=== PATIENT | female | born 1980 | race Caucasian/White ===

== ENCOUNTER 2019-01-29 17:47 | Outpatient (REF) | payer BC, SELFPAY ==
--- NOTE | 2019-01-29 16:30 | PAPFT_PTH ---
PATIENT: Kaity De Souza LOC: [facility] U#:[id number] AGE/SX: 38/F ROOM: RE01/29/[address]: Johana Harp APRN : 1980 BED: DIS: 01/29/2019 SPEC #: [id number] RECD: 01/29/19 17:51 STATUS: CARMITA CASTAÑEDA #: [id number] KATEY: 01/29/19 16:[address]: Johana Harp DEPT: [facility] Cytology RECD BY: Hilda Nunn Tissues: 1 - CX/ENDOCX FOR PAP SMEARS Procedures: PAP THIN PREP/UVM Screening HPV DNA PROBE Comments: [id number]
== END 2019-01-29 18:07 ==
LOC: LBN 17:47
PROVIDERS: PCP Nurse Practitioner Adult Health; Visit Provider Nurse Practitioner Adult Health
DX: Z12.4 Encounter for screening for malignant neoplasm of cervix (principal); Z11.51 Encounter for screening for human papillomavirus (HPV)
CPT/HCPCS: 88142; 87624

== ENCOUNTER 2019-08-20 15:19 | Outpatient (REF) | payer BC, SELFPAY | END 2019-08-20 15:39 | LOC: LBN 15:19 | PROVIDERS: PCP Nurse Practitioner Adult Health; Visit Provider Nurse Practitioner Adult Health | DX: R82.81 Pyuria (principal) | CPT/HCPCS: 87077; 87086; 87186 ==

== ENCOUNTER 2020-03-27 10:35 | Emergency (ER) | payer BC, SELFPAY ==
--- NOTE | 2020-03-27 10:30 | DI.RAD_ITS ---
EXAM: XR TIB/FIB LT and XR ankle LT complete CLINICAL HISTORY: Fall, R/O fracture. TECHNIQUE: 2D digital imaging was performed COMPARISON: CR,XR XR ANKLE LT COMPLETE from 03/27/2020 FINDINGS: BONES: There is a comminuted fracture involving the distal left fibula. The fracture involves the di stal metadiaphyseal junction and extends inferiorly to the level of the talar dome. There is some im paction the fracture noted. No tibial fracture is identified. The ankle is otherwise intact. No letitia ny destructive lesion is seen. The visualized portion of the knee is unremarkable. SOFT TISSUE: There is soft tissue swelling of the ankle laterally. IMPRESSION: Mildly displaced and impacted spiral fracture of the distal left fibula extending from the distal met adiaphysis inferiorly to the level of the talar dome. DATA REPOSITORY: RADIATION DOSE DELIVERED:
[2020-03-27 10:38] VITALS: BP 128/54; PULSE 88; RESP 16; TEMP 36.7; O2SAT 99
--- NOTE | 2020-03-27 10:43 | ED.GENADUL_ITS ---
Discharge Plan Disposition Patient Disposition: HOME Condition: Stable Discharge Details Chief Complaint: Orthopedic Clinical Impression: Closed fracture of distal end of left fibula Primary Care Provider: Johana Harp ED Provider: Ly Baltazar Home Meds and New Rx's Prescriptions: New ibuprofen 800 mg tablet 800 mg PO Q6H PRN (Reason: pain) Qty: 20 RF: 0 Discontinued ibuprofen 800 mg tablet 800 mg PO BID PRNQty: 60 RF: 1 Discharge Instructions Instructions: Ankle Fracture (ED), Leg Fracture (ED) Additional Instructions: Wear Ortho walking boot as directed. Use crutches. Non weight bearing is much as tolerated may progress to toe-touch weight bearing if tolerated. Rest, ice, compression, elevation while sitting or laying down. Keep your ankle raised above your heart as much as possible. Please take Tylenol or Ibuprofen with food every 4-6 hours as needed for pain and swelling. Follow-up with orthopedic clinic in 1 week. You are placed on a care management list they will call you for an appointment or you can call and make an appointment yourself. Referrals: Johnaa Harp NP [Primary Care Provider] - Antony Sharma MD [ [facility] STAFF PHYSICIAN] - Discharge Data Discharge Date/Time-TO BE ENTERED AT DEPARTURE: 03/27/20 11:54 Medical Decision Making 39-year-old female presents to the ED with chief complaint of left ankle pain status post mechanical fall yesterday while hiking. Patient describes injury as her foot got caught underneath some rocks and she fell forward and heard a pop. She denies any other injuries, no LOC, is alert and oriented x4 upon arrival, no neck, no back pain. Upon initial presentation she does have swelling noted to her left ankle, mild tenderness to palpation below her left knee. She did take 800 mg ibuprofen at 0930 prior to arrival. She has a history of scoliosis with spinal fusion, tubal ligation, asthma. 1049: Imaging ordered to rule out fracture of ankle and proximal tib-fib. 1107: X-ray of ankle shows a distal fibula fracture, vRad read noted below TECHNIQUE: Imaging protocol: XR Left tibia and fibula. Views: 2 views. COMPARISON: No relevant prior studies available. FINDINGS: Bones/joints: Complex spiral fracture of the distal left fibula/lateral malleolus with the distal extent at the level of the talar dome extending proximally to the metadiaphysis (Lama B). This fracture is minimally displaced and slightly impacted. No evident displaced distal tibial fracture. No evidence of proximal tibial or fibula fracture. The partially visualized left knee is unremarkable. Soft tissues: Lateral ankle soft tissue swelling. IMPRESSION: Complex spiral fracture of the distal left fibula/lateral malleolus with the distal extent at the level of the talar dome extending proximally to the metadiaphysis (Lama B). This fracture is minimally displaced and slightly impacted. No evident displaced distal tibial fracture. No evidence of proximal tibial or fibula fracture. Thank you for allowing us to participate in the care of your patient. Dictated and Authenticated by: William Churchill MD 03/27/2020 11:27 AM Eastern Time ([place] & [place]) 1132: transmission specialist, Antony Sharma on-call paged. He recommends Ortho boot and crutches and follow-up in 1 week. Patient tolerated walking boot without difficulty and crutches, discussed home care and strict return instructions with patient, verbalized understanding. Patient placed on care management list for Ortho follow-up. Ibuprofen 800 mg prescribed every 6 hours as needed for pain and swelling. This text was generated using [employer] dictation system, please disregard any oddities of phrase or misspellings. HPI General Mode of arrival: ambulatory (Crutches) . Date/Time Provider Initiated Documentation: 03/27/20 10:37 . Limitations to Documentation: no limitations . Information obtained by: patient . HPI Narrative: 39-year-old female presents to the ED with chief complaint of left ankle pain status post mechanical fall yesterday while hiking. Patient describes injury as her foot got caught underneath some rocks and she fell forward and heard a pop. She denies any other injuries, no LOC, is alert and oriented x4 upon arrival, no neck, no back pain. Upon initial presentation she does have swelling noted to her left ankle, mild tenderness to palpation below her left knee. She did take 800 mg ibuprofen at 930 prior to arrival. She has a history of scoliosis with spinal fusion, tubal ligation, asthma. Related Data Home Medications Medication Instructions Recorded Confirmed ibuprofen 800 mg PO Q6H PRN #20 tab 03/27/20 Previous Rx's Medication Instructions Recorded ibuprofen 800 mg PO Q6H PRN #20 tab 03/27/20 Allergies Allergy/AdvReac Type Severity Reaction Status Date / Time azithromycin AdvReac Intermediate Abd Verified 03/27/20 10:43 distress, vomiting, nausea General Stated Complaint: Orthopedic HELEN: 4 Review of Systems All systems reviewed & are unremarkable except as noted in HPI and below Musculoskeletal Musculoskeletal: Reports arthralgias, Reports joint swelling and Reports limited range of motion (Left ankle) PFSH Medical History Right knee meniscal tear (Resolved) with repair by Dr Villanueva ([facility]) 2006 Scoliosis (Chronic) Surgical History H/O breast biopsy (Resolved ~09/2012) H/O spinal fusion (Chronic) 1992 History of foot surgery (Inactive) Wart removed surgically (left 5th digit); stitches removed here @ ED. Status post excisional biopsy (Acute) [facility] Dr. Sourav Doherty, DPM, 07/07/19 Wart removal L 5th toe Tubal Ligation, Laparoscopic (Resolved) ~2006 Family History Mother , lymphoma, 2015 Lymphoma B-cell Father , CVA Neoplasm bladder cancer Stroke major Substance abuse EtOH Brother Hernia Colitis Grandfather Essential hypertension Grandmother Essential hypertension Myocardial infarction Stroke Social History Smoking/Tobacco Use Status: Never Alcohol Intake: current Alcohol Intake frequency: a few times a week Drug use: Never Substance use type: does not use Household members: spouse Housing: house Number of Children: 2 Communication Needs: None Education Level: college Details: BS degree Current gender identity: female What is your relationship status?: Panel score (0-1 are the most socially isolated patients): 1 What type of physical activity do you participate in: regular exercise Duration: 30-45 minutes/day Frequency: 3-4 times per week Seatbelt use: always Drive intox or ride w/intox laundry route driver: No Working smoke detector in home: Yes Fire extinguisher in home: Yes Carbon monox detector in home: Yes Do you feel safe at home: Yes Do you feel safe in your relationship?: Yes Victim of physical abuse: No Victim of emotional abuse: No Victim of sexual abuse: No Exam Narrative Exam Narrative: Constitutional: Alert and oriented x3. Appears stated age. Normal body habitus. Head: Normocephalic, no trauma. Eyes: Pupils PERRLA, Red reflex noted, EOM's intact. Eyelids symmetrical without lesions, discharge, or swelling. ENT: Bilateral TM's WNL, External ear normal to inspection, no mastoid TTP, swelling, or erythema, Nasal turbinates WNL, no nasal discharge. Normal dentition, Posterior pharynx WNL, no exudate. Chest: RRR, Normal S1, S2, distal pulses intact. Resp: Lungs clear to auscultation bilaterally, no wheezes, rales, or rhonchi. Musculoskeletal: Patient presents with crutches, does have moderate swelling n oted surrounding lateral and medial malleolus, dorsal pedal pulses intact. Does have mild tenderness just medial of the tibial tuberosity, full range of motion noted to the knee, no obvious deformity. Skin: No suspicious rashes or lesions. Capillary refill less than 2 sec. Neurologic: Cranial nerves II-XII intact. Alert and oriented x 3. DTR's intact. Hematologic/Lymphatic: Mild ecchymosis/contusion noted to the lateral malleolus. No lymphadenopathy. Course Vital Signs Vital signs: Vital Signs Temperature 36.7 C 03/27/20 10:38 Pulse 88 03/27/20 10:38 Respiratory Rate 16 03/27/20 10:38 Blood Pressure 128/54 L 03/27/20 10:38 Pulse Oximetry 99 03/27/20 10:38 Temperature 36.7 C 03/27/20 10:38 Temperature Source Skin 03/27/20 10:38 Pulse 88 03/27/20 10:38 Respiratory Rate 16 03/27/20 10:38 Respiratory Effort Non-Labored 03/27/20 10:38 Blood Pressure 128/54 L 03/27/20 10:38 Blood Pressure Position Sitting 03/27/20 10:38 Pulse Oximetry 99 03/27/20 10:38 Oxygen Delivery Method Room Air 03/27/20 10:38 Oxygen Flow Rate 0 03/27/20 10:38 Pain Level 10 03/27/20 10:38
--- NOTE | 2020-03-27 11:25 | DI.VRAD_ITS ---
PROCEDURE INFORMATION: Exam: XR Left Ankle Exam date and time: 03/27/2020 10:56 AM Age: 39 years old Clinical indication: Other: Fall, R/O fracture TECHNIQUE: Imaging protocol: XR Left ankle. Views: 3 or more views. COMPARISON: No relevant prior studies available. FINDINGS: Bones/joints: Complex spiral fracture of the distal left fibula/lateral malleolus with the distal extent at the level of the talar dome extending proximally to the metadiaphysis (Lama B). This fracture is minimally displaced and slightly impacted. No evident displaced distal tibial fracture. Soft tissues: Lateral soft tissue swelling. IMPRESSION: Complex spiral fracture of the distal left fibula/lateral malleolus with the distal extent at the level of the talar dome extending proximally to the metadiaphysis (Lama B). This fracture is minimally displaced and slightly impacted. No evident displaced distal tibial fracture. Dictated and Authenticated by: William Churchill MD. Ordering:CRIS Modi MD
--- NOTE | 2020-03-27 11:27 | DI.VRAD_ITS ---
PROCEDURE INFORMATION: Exam: XR Left Tibia and Fibula Exam date and time: 03/27/2020 10:54 AM Age: 39 years old Clinical indication: Other: Fall, R/O fracture TECHNIQUE: Imaging protocol: XR Left tibia and fibula. Views: 2 views. COMPARISON: No relevant prior studies available. FINDINGS: Bones/joints: Complex spiral fracture of the distal left fibula/lateral malleolus with the distal extent at the level of the talar dome extending proximally to the metadiaphysis (Lama B). This fracture is minimally displaced and slightly impacted. No evident displaced distal tibial fracture. No evidence of proximal tibial or fibula fracture. The partially visualized left knee is unremarkable. Soft tissues: Lateral ankle soft tissue swelling. IMPRESSION: Complex spiral fracture of the distal left fibula/lateral malleolus with the distal extent at the level of the talar dome extending proximally to the metadiaphysis (Lama B). This fracture is minimally displaced and slightly impacted. No evident displaced distal tibial fracture. No evidence of proximal tibial or fibula fracture. Dictated and Authenticated by: William Churchill MD. Ordering:CRIS Modi MD
== END 2020-03-27 11:54 | disposition home or self-care (01) ==
PROVIDERS: Emergency Provider Registered Nurse Emergency; PCP Nurse Practitioner Adult Health
DX: S82.442A Displaced spiral fracture of shaft of left fibula, initial encounter for closed fracture (principal); X50.9XXA Other and unspecified overexertion or strenuous movements or postures, initial encounter; Y93.01 Activity, walking, marching and hiking
CPT/HCPCS: 27786; 73590; 73610; L4361

== ENCOUNTER 2020-04-05 12:06 | Outpatient (REF) | payer BC, SELFPAY | END 2020-04-05 12:26 | LOC: LBN 12:06 | PROVIDERS: PCP Nurse Practitioner Adult Health; Visit Provider Nurse Practitioner | DX: R30.0 Dysuria (principal) | CPT/HCPCS: 87086 ==

== ENCOUNTER 2021-03-10 03:54 | Outpatient (CLI) | payer BC, SELFPAY ==
[2021-03-10 11:58] LABS: Anion Gap 7.6 mmol/L (3-11); BUN 13 mg/dL (7-18); CO2 27.4 mmol/L (21.0-32.0); CREATININE 0.7 mg/dL (0.55-1.02); Calcium 8.7 mg/dL (8.5-10.1); Chloride 107 mmol/L (98-107); Glucose 96 mg/dL (74-106); Potassium 4.2 mmol/L (3.5-5.1); Sodium 142 mmol/L (136-145)
== END 2021-03-10 03:55 | disposition home or self-care (01) ==
LOC: LBO 03:54
PROVIDERS: PCP Nurse Practitioner Adult Health; Visit Provider Nurse Practitioner Adult Health
DX: R42 Dizziness and giddiness (principal)
CPT/HCPCS: 36415; 80048

== ENCOUNTER → 2022-06-15 00:14 | Outpatient (CLI) | payer BC, SELFPAY ==
--- OUTSIDE RECORDS SUMMARY | 2022-06-15 00:15 | XMS_ITS | Encounter Summary ---
:1980 Author Organization [facility] [place] [address] Care Team Providers Name Role Phone Yaritza Stewart APRN Primary Care Provider [phone] Encounter Details Date Type Department Care Team Description 07/02/2019 External Results Medical Records Provider, Scanning [facility] [place] [address] Social History Tobacco Use Types Packs/Day Years Used Date Never Assessed Sex Assigned at Date Recorded Not on file documented as of this encounter Plan of Treatment Not on filedocumented as of this encounter Procedures Procedure Name Priority Date/Time Associated Diagnosis Comme nts SURGICAL PATHOLOGY Routine 07/02/2019 Results f or this SCAN procedure are i n the results section . documented in this encounter Results Scan Doc: Surgical Pathology (07/02/2019) Narrative This result has an attachment that is no t available. Historical Provider MD DEJESUS MGR SCAN EXT ORDR/RSLT documented in this encounter Visit Diagnoses Not on filedocumented in this encounter Care Teams Associate Engineer Relationship Specialty Start Date End Date Yaritza Stewart APRN PCP - General 08/22/[address] [place] [address] documented as of this encounter
--- OUTSIDE RECORDS SUMMARY | 2022-06-15 00:15 | XMS_ITS | Encounter Summary ---
:1980 Author Organization [facility] [place] [address] Care Team Providers Name Role Phone Yaritza Stewart JULIEN Primary Care Provider [phone] Encounter Details Date Type Department Care Team Description 07/01/2019 Hospital Encounter [place] [address] Social History Tobacco Use Types Packs/Day Years Used Date Never Assessed Sex Assigned at Date Recorded Not on file documented as of this encounter Plan of Treatment Not on filedocumented as of this encounter Procedures Procedure Name Priority Date/Time Associated Diagnosis Comme [facility] SURGICAL PATHOLOGY Routine 07/01/2019 12:00 PM Toya ramirez for this REPORT EDT procedure are i n the results section. documented in this encounter Results Surgical Pathology Report (07/01/2019 12:00 PM EDT) Component Value Ref Test Analysis Performed At [facility] Method Time [facility] Surgical [id number] ? Location: [facility] Pathology [place] Report The signing pathologist has (i) examined the relevant preparation(s) for the [facility] specimen(s) and (ii) rendered or confirmed the diagnosis(es) . HOSPITAL LABORATORY . ?Surgic al Pathology DIAGNOSIS Skin, left 5th toe, ??excision: - Myrmecia wart, present at the peripheral margins Electronically signed by: ??Alex Simpson MD Verified: ??07/07/2019 ?Dermatopathologist Performed at: ??-[facility] Dept. of Pathology, [place], [place] CLINICAL INFORMATION Specimen Submitted: A - SKin, left 5th toe, lesion tag-proximal Clinical History and Diagnosis: Verruca plantaris left foot Referring Identifier: ??[id number] SPECIMEN PROCESSING A - Labeled/Fixative: Skin lesion left fifth toe tag proxima l, formalin. Quantity/Size: ??Single, 0.9 x 0.8 x 0.5 cm. Tissue Description: Oriented ellipse of colon-phan skin with a suture one apex identified as proximal. The skin surfaces presented with a raised, granular ill- defined papule 0.6 cm in greatest dimension Inkin-3-6 o'clock is marked black. ??6-9-12 o'clock is marked blue. Sections/Processing: Serially sectioned and entirely submitted in 3 cassettes as follows: ?A1: ??Sutured, proximal apex ?A2: ??Body ?A3: ??Distal apex ??PPS/vb Specimen (Source) Anatomical Collection Method Collection Time Re ceived Time Location / / Volume Laterality 07/01/2019 12:00 PM EDT Resulting Agency Comment Spec In Lab / [facility] Sourav Doherty DPM PATHOLOGY/CYTOLOGY ORDERAB LES Performing Organization Address City/State/[place] [address] [facility] [address] documented in this encounter Visit Diagnoses Not on filedocumented in this encounter Care Teams Child Care Centre Director Relationship Specialty Start Date End Date Yaritza Stewart APRN PCP - General 08/22/[address] [place] [address] documented as of this encounter
--- OUTSIDE RECORDS SUMMARY | 2022-06-15 00:15 | XMS_ITS | Encounter Summary ---
:1980 Author Organization [employer] [facility] [employer] Address [address] [place] [address] Care Team Providers Name Role Phone Yaritza Stewart JULIEN Primary Care Provider [phone] Encounter Details Date Type Department Care Team Description 09/11/2011 Orders Only Radiology Lucero Bailey MD Abnormal mammogram, [facility] ([address]) [place] [address] DIAGNOSTIC [phone] RADIOLOGY [place], [place] [address] Social History Tobacco Use Types Packs/Day Years Used Date Never Assessed Sex Assigned at Date Recorded Not on file documented as of this encounter Plan of Treatment Not on filedocumented as of this encounter Results Mammo breast US unilateral bilateral (09/12/2011 1:36 PM EST) Anatomical Region Laterality Modality Breast N/A Mammography Specimen (Source) Anatomical Collection Method Collection Time Re ceived Time Location / / Volume Laterality 09/12/2011 1:36 PM EST Narrative 09/12/2011 4:21 PM EST LEFT BREAST ULTRASOUND ON 09/12/11: ?? DIAGNOSTIC IMAGING SUMMARY: ?? LEFT BREAST LESION 1: SUSPICIOUS (BIRADS Category 4A-low concern for malignancy). ?? Finding: Mass. ?? Size: 15 x 7mm. ?? Location: 0400, 5cm from the nipple. ?? Recommendation: This is felt to likely r epresent a fibroadenoma; however, as it is newly palpable, ultrasound guided bio psy was recommended and has been scheduled for 09/17/11 at 10:50am. ? NARRATIVE: ?? CLINICAL INDICATION: Follow-up outside i nterpretation. The patient had a palpable lump in the Left breast. Per e patient, the lump was palpated by the clinician and it was the clinician's fir st time examining the patient. ?? CORRELATIVE STUDIES: Mammogram 08/28/11 and ultrasound 08/28/11. ?? FINDINGS: In the Left breast in the 0400 position, 5cm from the nipple there is a well circumscribed, gently lobulated 1 5 x 7mm predominantly hypoechoic mass with a small amount of internal vascular ity. ? Film and interpretation reviewed by the attending Procedure Note Danica Gonzalez MD - 09/12/2011Format ting of this note might be different from the original. LEFT BREAST ULTRASOUND ON 09/12/11: DIAGNOSTIC IMAGING SUMMARY: LEFT BREAST LESION 1: SUSPICIOUS (BIRADS Category 4A-low concern for malignancy). Finding: Mass. Size: 15 x 7mm. Location: 0400, 5cm from the nipple. Recommendation: This is felt to likely r epresent a fibroadenoma; however, as it is newly palpable, ultrasound guided bio psy was recommended and has been scheduled for 09/17/11 at 10:50am. NARRATIVE: CLINICAL INDICATION: Follow-up outside i nterpretation. The patient had a palpable lump in the Left breast. Per e patient, the lump was palpated by the clinician and it was the clinician's fir st time examining the patient. CORRELATIVE STUDIES: Mammogram 08/28/11 and ultrasound 08/28/11. FINDINGS: In the Left breast in the 0400 position, 5cm from the nipple there is a well circumscribed, gently lobulated 1 5 x 7mm predominantly hypoechoic mass with a small amount of internal vascular ity. Film and interpretation reviewed by the attending Lucero Bailey MD IMG MAMMO ORDERABLES documented in this encounter Visit Diagnoses Diagnosis Abnormal mammogram, unspecified - Primar y Abnormal mammogram, unspecified documented in this encounter Care Teams Assembly Press Operator Relationship Specialty Start Date End Date Yaritza Stewart APRN PCP - General 08/22/[address] [place] [address] documented as of this encounter
--- OUTSIDE RECORDS SUMMARY | 2022-06-15 00:15 | XMS_ITS | Encounter Summary ---
:1980 Author Organization [facility] [place] [address] Care Team Providers Name Role Phone Yaritza Stewart INSURANCE POLICY CLERK Primary Care Provider [phone] Encounter Details Date Type Department Care Team Description 09/17/2011 Hospital Encounter Mammography [place] [facility] [place] BECKETT Lump or mass in breast; [facility] Jonathan Guerrero MD [address], [place] [id number] Abnormal findings on diagnostic [place] [id number] Social History Tobacco Use Types Packs/Day Years Used Date Never Assessed Sex Assigned at Date Recorded Not on file documented as of this encounter H&P Notes Danica Greene MD - 09/17/2011 10:55 AM EST Procedure date: done today Procedure type: right Breast ultrasound guided biopsy Special Instructions: none Allergies: Review of patient's allergies indicates not on file. Medications: No current outpatient prescriptions on file. Anticoagulation status: none Imaging reviewed and procedural plan approved by Dr. DANICA GREENE MD documented in this encounter Miscellaneous Notes Miscellaneous - Provider, Scanning - 09/28/2011 9:10 AM EST Miscellaneous - Provider, Scanning - 09/28/2011 8:56 AM EST documented in this encounter Plan of Treatment Not on filedocumented as of this encounter Procedures Procedure Name Priority Date/Time Associated Diagnosis Comme nts MAMMO US BIOPSY Routine 09/17/2011 11:55 AM Lump or mass in Re sults for this BILATERAL EST breast procedure are in Abnormal findings on the res ults diagnostic imaging section. of breast documented in this encounter Results Mammo- US biopsy (09/17/2011 11:55 AM EST) Anatomical Region Laterality Modality Breast N/A Mammography Specimen (Source) Anatomical Collection Method Collection Time Re ceived Time Location / / Volume Laterality 09/17/2011 11:55 AM EST Impressions 09/19/2011 1:41 PM EST Impression: Concordant Recommendation: Commence routine screeni ng mammography at an age and time interval appropriate for her risk factor s and future recommendations. Discussed with the patient on 09/19/11 No post-clip films obtained Both Dr. Cruz and I performed the proc edure. I attest to having personally viewed the images/test and approve the a alda interpretation. Narrative 09/19/2011 1:41 PM EST ULTRASOUND GUIDED BIOPSY OF THE LEFT SAI AST ON 09/17/11: Informed consent was obtained, sterile t echnique and 1% lidocaine used for local anesthesia and ultrasound guidance used throughout the procedure. Clinical indication: 19mm mass, 0400, 5c m from nipple in the Left breast A 14 gauge Achieve biopsy device was use d 4 core biopsy specimens obtained. Satisfactory sampling was obtained. A 17 gauge Ultracore [place] marker clip w as placed. Cranio-caudal and lateral digital mammography performed to determi ne biopsy marker placement, which was shown to be at the biopsy site. There were no procedural complications. Imaging diagnosis: Fibroadenoma Pathologic diagnosis: Fibroadenoma Procedure Note Danica Greene MD - 09/19/2011Format ting of this note might be different from the original. ULTRASOUND GUIDED BIOPSY OF THE LEFT SAI AST ON 09/17/11: Informed consent was obtained, sterile t echnique and 1% lidocaine used for local anesthesia and ultrasound guidance used throughout the procedure. Clinical indication: 19mm mass, 0400, 5c m from nipple in the Left breast A 14 gauge Achieve biopsy device was use d 4 core biopsy specimens obtained. Satisfactory sampling was obtained. A 17 gauge Ultracore [place] marker clip w as placed. Cranio-caudal and lateral digital mammography performed to determi ne biopsy marker placement, which was shown to be at the biopsy site. There were no procedural complications. Imaging diagnosis: Fibroadenoma Pathologic diagnosis: Fibroadenoma IMPRESSION Impression: Concordant Recommendation: Commence routine screeni ng mammography at an age and time interval appropriate for her risk factor s and future recommendations. Discussed with the patient on 09/19/11 No post-clip films obtained Both Dr. Cruz and I performed the proc edure. I attest to having personally viewed the images/test and approve the a alda interpretation. Danica Greene MD IMG MAMMO ORDERABLES documented in this encounter Visit Diagnoses Diagnosis Lump or mass in breast Abnormal findings on diagnostic imaging of breast Other (abnormal) findings on radiologica l examination of breast documented in this encounter Care Teams Grain Grader Relationship Specialty Start Date End Date Yaritza Stewart APRN PCP - General 08/22/[address] [address] documented as of this encounter
--- OUTSIDE RECORDS SUMMARY | 2022-06-15 00:15 | XMS_ITS | Encounter Summary ---
:1980 Author Organization [facility] Address [facility] [address] [place] [address] Care Team Providers Name Role Phone Yaritza Stewart REVENUE INSPECTOR Primary Care Provider [phone] Encounter Details Date Type Department Care Team Description 09/07/2011 Hospital Encounter XRay at [facility], DR BECKETT [address] [place] [address] [place] [phone] Social History Tobacco Use Types Packs/Day Years Used Date Never Assessed Sex Assigned at Date Recorded Not on file documented as of this encounter Plan of Treatment Not on filedocumented as of this encounter Procedures Procedure Name Priority Date/Time Associated Diagnosis Comme nts REQUEST FOR 2ND Routine 09/07/2011 1:46 PM Result s for this READ MAMMO EST procedure are i n the results section. documented in this encounter Results REQUEST FOR 2ND READ MAMMO (09/07/2011 1:46 PM EST) Anatomical Region Laterality Modality Other Specimen (Source) Anatomical Collection Method Collection Time Re ceived Time Location / / Volume Laterality 09/07/2011 1:46 PM EST Narrative 09/10/2011 11:36 AM EST INTERPRETATION OF OUTSIDE BILATERAL DIRE CT DIGITAL MAMMOGRAM 08/28/11 CONSISTING OF CC, MLO AND ML VIEWS OF LES TH BREASTS FROM [facility] (NO COMPARISONS) AND ACCOMPANYING REPORTS WITH LEFT BREAS T ULTRASOUND OF THE SAME DATE FOR COMPARISON: DIAGNOSTIC IMAGING SUMMARY: LEFT BREAST LESION 1: SUSPICIOUS (BIRADS Category 4). Finding: Palpable solid mass. Recommendation: If this mass is newly pa lpable, then tissue sampling is recommended. If the patient wishes to pu rsue tissue sampling at this institution, then a repeat ultrasound wo uld be needed prior to scheduling the biopsy. NARRATIVE: CLINICAL INDICATION: I have been asked t o consult on this patient by Dr. Jonathan Guerrero and Johana Harp APRN [facility] ause they believe a review of this study may change or alter the care of [facility]. The patient presented with a palpable lump in the Left breast. There is a skin marker presumably markin g a palpable abnormality in the lower, outer quadrant of the Left breast. FINDINGS: The mammogram shows an extreme ly dense fibroglandular pattern. No finding worrisome for malignancy is s een in either breast. Specifically, in the region of the indicated palpable mas s there is no mammographic abnormality. Per outside ultrasound report and the mitchell bmitted images there does appear to be a solid mass which presumably correspond s to the palpable abnormality. This may very well represent a fibradenoma but if this is newly palpable, ??recommend ultrasound guided core needle biopsy. If patient wishes to pursue biopsy at this institution and as ultrasound is op erator dependent, a repeat ultrasound would be needed at this institution prio r to scheduling the biopsy. Procedure Note Lucero Bailey MD - 09/10/2011 INTERPRETATION OF OUTSIDE BILATERAL DIRE CT DIGITAL MAMMOGRAM 08/28/11 CONSISTING OF CC, MLO AND ML VIEWS OF LES TH BREASTS FROM [facility] (NO COMPARISONS) AND ACCOMPANYING REPORTS WITH LEFT BREAS T ULTRASOUND OF THE SAME DATE FOR COMPARISON: DIAGNOSTIC IMAGING SUMMARY: LEFT BREAST LESION 1: SUSPICIOUS (BIRADS Category 4). Finding: Palpable solid mass. Recommendation: If this mass is newly pa lpable, then tissue sampling is recommended. If the patient wishes to pu rsue tissue sampling at this institution, then a repeat ultrasound wo uld be needed prior to scheduling the biopsy. NARRATIVE: CLINICAL INDICATION: I have been asked t o consult on this patient by Dr. Jonathan Guerrero and JULIEN Cotton they believe a review of this study may change or alter the care of [facility] patient. The patient presented with a palpable lump in the Left breast. There is a skin marker presumably markin g a palpable abnormality in the lower, outer quadrant of the Left breast. FINDINGS: The mammogram shows an extreme ly dense fibroglandular pattern. No finding worrisome for malignancy is s een in either breast. Specifically, in the region of the indicated palpable mas s there is no mammographic abnormality. Per outside ultrasound report and the mitchell bmitted images there does appear to be a solid mass which presumably correspond s to the palpable abnormality. This may very well represent a fibradenoma but if this is newly palpable, recommend ultrasound guided core needle biopsy. If patient wishes to pursue biopsy at this institution and as ultrasound is op erator dependent, a repeat ultrasound would be needed at this institution prio r to scheduling the biopsy. Johana Harp APRN IMG OUTSIDE INTERPRETATION O RDERABLES documented in this encounter Visit Diagnoses Not on filedocumented in this encounter Care Teams Personnel Worker Relationship Specialty Start Date End Date Yaritza Stewart APRN PCP - General 08/22/[address] [place] [address] documented as of this encounter
--- OUTSIDE RECORDS SUMMARY | 2022-06-15 00:15 | XMS_ITS | Encounter Summary ---
:1980 Author Organization [facility] Address [facility] [place] [address] Care Team Providers Name Role Phone Yaritza Stewart APRN Primary Care Provider Encounter Details Date Type Department Care Team Description 09/12/2011 Orders Only Radiology Danica Gonzalez, Lump or mass in breast; [facility] Abnormal findings on diagnostic imaging [place] [address] DIAGNOSTIC RADIOLOGY [phone] [place], [place] [address] (Wo rk) Social History Tobacco Use Types Packs/Day Years Used Date Never Assessed Sex Assigned at Date Recorded Not on file documented as of this encounter Plan of Treatment Not on filedocumented as of this encounter Results Mammo- US biopsy (09/17/2011 [...] personally viewed the images/test and approve the kath lizama interpretation. Narrative 09/19/2011 1:41 PM EST ULTRASOUND [...] sampling was obtained. A 17 gauge Ultracore [place] marker clip w as placed. Cranio-caudal and lateral digital mammography performed to determi ne biopsy marker placement, which was shown to be at the biopsy site. There were no procedural complications. Imaging diagnosis: Fibroadenoma Pathologic diagnosis: Fibroadenoma Procedure Note Danica Gonzalez MD - 09/19/2011Format ting of this note [...] sampling was obtained. A 17 gauge Ultracore [place] marker clip w as placed. Cranio-caudal and [...] and approve the a alda interpretation. Danica Gonzalez MD IMG MAMMO ORDERABLES documented in this encounter Visit Diagnoses Diagnosis Lump or mass in breast Abnormal findings on diagnostic imaging of breast Other (abnormal) findings on radiologica l examination of breast Lump or mass in breast Abnormal findings on diagnostic imaging of breast Other (abnormal) findings on radiologica l examination of breast documented in this encounter Care Teams Manager Battery Relationship Specialty Start Date End Date Yaritza Stewart APRN PCP - General 08/22/10 [address] [place] [address] documented as of this encounter
--- OUTSIDE RECORDS SUMMARY | 2022-06-15 00:15 | XMS_ITS | Encounter Summary ---
:1980 Author Organization [facility] [place] [address] Care Team Providers Name Role Phone Yaritza Stewart APRN Primary Care Provider [phone] Encounter Details Date Type Department Care Team Description 09/06/2011 External Results [facility] [place] [address] Social History Tobacco Use Types Packs/Day Years Used Date Never Assessed Sex Assigned at Date Recorded Not on file documented as of this encounter Plan of Treatment Not on filedocumented as of this encounter Procedures Procedure Name Priority Date/Time Associated Diagnosis Comme nts MAMMO GENERIC BILATERAL SCREENING Routine 08/28/2011 documented in this encounter Results *Mammo generic bilateral screening (08/28/2011) Anatomical Region Laterality Modality Breast Bilateral Mammography Narrative This result has an attachment that is no t available. Historical Provider MD PHIPPS MAMMO ORDERABLES documented in this encounter Visit Diagnoses Not on filedocumented in this encounter Care Teams Commissary Representative Relationship Specialty Start Date End Date Yaritza Stewart APRN PCP - General 08/22/10 [facility] [place] [place] [address] documented as of this encounter
--- OUTSIDE RECORDS SUMMARY | 2022-06-15 00:15 | XMS_ITS | Clinical Summary ---
:1980 Author Organization [facility] [place] [address] Care Team Providers Name Role Phone Yaritza Stewart APRN Primary Care Provider [phone] Social History Tobacco Use Types Packs/Day Years Used Date Never Assessed Sex Assigned at Date Recorded Not on file Plan of Treatment Health Maintenance Due Date Last Done Comments Covid-19 Vaccine (#1) 1983 HIV screen 1996 Hepatitis C Screening 1996 Tdap adult 1997 Tetanus vaccine 1997 HPV test 2008 PAP Smear 2008 Breast Cancer Share Decision Needed 2018 Influenza (Flu) vaccine (1 of - Influenza standard 05/31/2022 series) Insurance Payer Benefit Plan / Subscriber ID Effective Dates Phone Addre ss Type Group [employer] [place] [id number] 2018-Present [address] [employer] [place] [address] Care Teams Model Maker Relationship Specialty Start Date End Date Yaritza Stewart APRN PCP - General 08/22/[address] [place] [address]
--- OUTSIDE RECORDS SUMMARY | 2022-06-15 00:15 | XMS_ITS | Encounter Summary ---
:1980 Author Organization [place] [address] Care Team Providers Name Role Phone Yaritza Stewart JULIEN Primary Care Provider [phone] Encounter Details Date Type Department Care Team Description 09/12/2011 Hospital Encounter Mammography at [facility], DR BECKETT Abnormal mammogram, [facility] Jonathan Guerrero MD [address] [place], [place] [id number] [place] [address] Social History Tobacco Use Types Packs/Day Years Used Date Never Assessed Sex Assigned at Date Recorded Not on file documented as of this encounter Plan of Treatment Not on filedocumented as of this encounter Procedures Procedure Name Priority Date/Time Associated Diagnosis Comme nts MAMMO BREAST US Routine 09/12/2011 1:36 PM Abnormal mammogram, Results for this LIMITED EST unspecified procedure are i n the results section. documented in this encounter Results Mammo breast US unilateral [...] palpable lump in the Left breast. Per th e patient, the lump was palpated by [...] palpable lump in the Left breast. Per th e patient, the lump was palpated by [...] encounter Visit Diagnoses Diagnosis Abnormal mammogram, unspecified documented in this encounter Care Teams Machine Worker Relationship Specialty Start Date End Date Yaritza Stewart APRN PCP - General 08/22/[address] [place] [address] documented as of this encounter
--- OUTSIDE RECORDS SUMMARY | 2022-06-15 00:16 | XMS_ITS | CCD ---
:1980 Author Care Team Providers Name Role Phone KARLIE HAN Attending Physician Unavailable KARLIE HAN Rounding (Secondary) Physician Unavailab le Vital Signs Unknown or Not Available. Allergies Allergy Code Allergy Type Reaction Status NAPROXEN 7258 Drug allergy Nausea Active AZITHROMYCIN 07010 Drug allergy Vomiting Active Procedures Unknown or Not Available. History of Immunizations Unknown or Not Available. Problems Unknown or Not Available. Results Unknown or Not Available. Active Medications Unknown or Not Available. Medications Administered During Visit Unknown or Not Available. Encounters Encounter Diagnosis Diagnosis Code Start Date Refusal of treatment by patient [id number] 08/04/20 21 Social History Smoking Status Code Start Date End Date Never smoker [id number] Patient Decision Aids Unknown or Not Available. Discharge Instructions You were admitted to [facility] on 08/04/2021 10:01 with a principal diagnosis of Procedure and treatment not carried o ar because of patient's decision for unspecified reasons You were discharged from [facility] on 08/04/2021 10:01 Should you have any questions prior to d ischarge, please contact a member of your healthcare team. If you have left the ho spital and have any questions, please contact your primary care physician. Chief Complaint and Reason For Visit Unknown or Not Available. Function Status Unknown or Not Available. Plan of Care Unknown or Not Available. Referral/Transition of Care Unknown or Not Available.
--- OUTSIDE RECORDS SUMMARY | 2022-06-15 00:16 | XMS_ITS | CCD ---
:1980 Author Care Team Providers Name Role Phone KARLIE HAN Attending Physician Unavailable Vital Signs Unknown or Not Available. Allergies Allergy Code Allergy Type Reaction Status NAPROXEN 7258 Drug allergy Nausea Active AZITHROMYCIN 22997 Drug allergy Vomiting Active Procedures Unknown or Not Available. History of Immunizations Unknown or Not Available. Problems Unknown or Not Available. Results [facility] COVID RHEONIX* - Collect Date/Carlos e: 08/02/2021 11:31 Test Name Code Test Result Test Units Test Ref Range SOURCE= Anterior nasal N/A Tier- PRE-OP N/A SARS COV2 RNA: 41357-8 NEGATIVE N/A REFERENCE RAN GE: NEGAT Active Medications Unknown or Not Available. Medications Administered During Visit Unknown or Not Available. Encounters Encounter Diagnosis Diagnosis Code Start Date Pre-surgery testing [id number] 08/02/2021 Social History Smoking Status Code Start Date End Date Never smoker [id number] Patient Decision Aids Unknown or Not Available. Discharge Instructions You were admitted to [facility] on 08/02/2021 18:42 with a principal diagnosis of Encounter for preprocedural laborator y examination You had the following tests done: COPLE Y COVID RHEONIX* You were discharged from [facility] on 08/02/2021 18:42 Should you have any questions prior to d ischarge, please contact a member of your healthcare team. If you have left the spital and have any questions, please contact your primary care physician. Chief Complaint and Reason For Visit Unknown or Not Available. Function Status Unknown or Not Available. Plan of Care Unknown or Not Available. Referral/Transition of Care Unknown or Not Available.
--- OUTSIDE RECORDS SUMMARY | 2022-06-15 00:16 | XMS_ITS | CCD ---
:1980 Author Care Team Providers Name Role Phone KARLIE HAN Attending Physician Unavailable KARLIE HAN Rounding (Secondary) Physician Unavailab le Vital Signs Unknown or Not Available. Allergies Allergy Code Allergy Type Reaction Status NAPROXEN 7258 Drug allergy Nausea Active AZITHROMYCIN 62350 Drug allergy Vomiting Active Procedures Unknown or Not Available. History of Immunizations Unknown or Not Available. Problems Unknown or Not Available. Results Unknown or Not Available. Active Medications Unknown or Not Available. Medications Administered During Visit Unknown or Not Available. Encounters Encounter Diagnosis Diagnosis Code Start Date Follow-up orthopedic assessment [id number] 08/15/20 21 Social History Smoking Status Code Start Date End Date Never smoker [id number] Patient Decision Aids Unknown or Not Available. Discharge Instructions You were admitted to [facility] on 08/15/2021 10:01 with a principal diagnosis of Encounter for other orthopedic afterc are You were discharged from [facility] on 08/15/2021 00:00 Should you have any questions prior to [...]
--- NOTE | 2022-06-15 06:45 | DI.MAMMO_ITS ---
Exam(s) MAMMO SCREENING EXAM: MAMMO SCREENING CLINICAL HISTORY: screening,z12.39. TECHNIQUE: Bilateral full field digital CC and MLO mammographic images were obtained with 3D tomosyn thesis and utilizing computer aided detection (CAD). COMPARISON: Prior mammograms of 2011 were not able to be reviewed reviewed,, apparently not in the [facility] system. FINDINGS: Fibroglandular tissue pattern is dense, this somewhat decreasing the sensitivity mammogram for findin g hidden underlying lesions. There is a biopsy marker clip in the left breast located lateral of center. This appears to be assoc iated with a 1.5 x 1.5 cm nodular-density located 7 cm in from the nipple on the CC view. No obvious discernible nodular densities in either breast. No malignant-appearing microcalcification groups. There is no significant architectural distortion nor skin thickening-retraction. IMPRESSION: Dense bilateral fibroglandular tissue. Asymmetric density in left breast measuring 15 x 15 millimete r appearing to be associated with biopsy marker clip. Last mammograms were in 2010 and not available . Recommend follow-up left breast spot compression view and ultrasound of the left breast. BI-RADS Category 0 - Assessment Incomplete: Need additional imaging evaluation Breast Density - Category C - Heterogeneously dense Breast density Category C or D implies that the patient has dense breast tissue. Dense breast tissue can make it harder to find cancer on a mammogram. Dense breast tissue is also associated with an incr eased risk of breast cancer. This information about the result of the mammogram report was provided to the patient to raise their awareness. Use this report when you speak with the patient about their risks for breast cancer, which includes their family history. At that time, you may recommend additional screening tests (Ultrasoun d or MRI) as these tests may add significant information. A negative radiographic report should not delay biopsy if a dominant or clinically suspicious mass is present. Up to ten percent of cancers are not identified on mammography. A negative report may reinforce clinical impression. Adenosis and dense breasts may obscure an underlying neoplasm. False positive reports average 6 to 10%. Patient will receive a letter notifying them of these results.
== END ==
PROVIDERS: PCP Nurse Practitioner Adult Health; Visit Provider Nurse Practitioner Adult Health
DX: Z12.31 Encounter for screening mammogram for malignant neoplasm of breast (principal); R92.8 Other abnormal and inconclusive findings on diagnostic imaging of breast
CPT/HCPCS: 77063; 77067

== ENCOUNTER → 2022-06-21 02:54 | Outpatient (CLI) | payer BC, SELFPAY ==
--- NOTE | 2022-06-21 10:40 | DI.MAMMO_ITS ---
Exam(s) MG MAMMO SCREEN CALL BACK UNI US BREAST LT COMPLETE EXAM: MG MAMMO SCREEN CALL BACK UNI CLINICAL HISTORY: F/U ABNL MAMMO, ASYMMETRIC DENSITY IN LT BREAST. TECHNIQUE: Craniocaudal and mediolateral oblique spot compression digital Mammography views of the left breast with Tomosynthesis and left breast ultrasound. COMPARISON: DIAGNOSTIC BILAT MAMMO W/CAD from 08/28/2011 US LEFT BREAST ULTRASOUND from 08/28/2011 MG MG MAMMO SCREENING from 06/15/2022 US US BREAST LT COMPLETE from 06/21/2022 FINDINGS: Mammography/Tomosynthesis: Masses/Architectural Distortion: Persistent circumscribed nodule in the posterior breast slightly med ial and inferior to the nipple. A biopsy marker clip is seen within the nodule. The pathology was b enign according to the patient. Microcalcifictions: No suspicious pleomorphic-type are seen. Skin Thickening/Nipple Retraction: None. Left breast US: Echotexture: Normal appearance of the dense glandular tissue. Shadowing: No suspicious foci. Cyst: None. Solid lesions: Circumscribed hypoechoic lesion in the 3 o'clock position 6 cm from the nipple which c ontains the biopsy marker clip seen on mammogram. The nodule measures 18 x 18 x 10 millimeters which has increased from 2011 where it measured 7 x 15 x 12 millimeters. No additional lesions are identi fied elsewhere in the breast. Ductal dilation: None. IMPRESSION: 1. Circumscribed nodule containing a biopsy marker clip has increased in size when compared with 2011 but does not show suspicious features.. 2. Six-month follow-up ultrasound recommended.. 3. The findings were discussed with the patient on the date of the examination. BI-RADS Category 3 - 6 month - Probably Benign Finding: Recommend follow-up mammography in 6 months Breast Density - Category D - Extremely dense A mammogram that demonstrates density of C or D indicates the patient's breast tissue is dense. Dense breast tissue is very common and is not abnormal, but dense breast tissue can make it harder to find cancer on a mammogram. Also, dense breast tissue may increase their breast cancer risk. This informa tion about the result of the mammogram report was provided to the patient to raise their awareness. U se this report when you speak with the patient about their risks for breast cancer, which includes th eir family history. At that time, you may recommend for more screening tests (Ultrasound or MRI) as t hey might be useful based on their risk. A negative radiographic report should not delay biopsy if a dominant or clinically suspicious mass is present. Up to ten percent of cancers are not identified on mammography. A negative report may reinforce clinical impression. Adenosis and dense breasts may obscure an underlying neoplasm. False positive reports average 6 to 10%. Patient will receive a letter notifying them of these results.
== END ==
PROVIDERS: PCP Nurse Practitioner Adult Health; Visit Provider Nurse Practitioner Adult Health
DX: Z12.31 Encounter for screening mammogram for malignant neoplasm of breast (principal); R92.8 Other abnormal and inconclusive findings on diagnostic imaging of breast
CPT/HCPCS: 76642; 77063; 77067

== ENCOUNTER 2023-02-27 14:21 | Outpatient (CLI) | payer BC, SELFPAY ==
--- NOTE | 2023-02-27 14:38 | DI.RAD_ITS ---
Exam(s) XR KNEE RT 3V AP,LAT,BRITTANY EXAM: XR KNEE RT 3V AP,LAT,BRITTANY CLINICAL HISTORY: KNEE PAIN. TECHNIQUE: 2D digital imaging was performed. Three views. COMPARISON: CR RIGHT KNEE 3 VIEWS from 08/13/2013 FINDINGS: BONES: No acute fracture is present. No bony destructive lesion is seen. JOINTS: The knee is normally aligned. No joint effusion is seen. SOFT TISSUE: Normal. IMPRESSION: Unremarkable radiographs of the right knee. DATA REPOSITORY: RADIATION DOSE DELIVERED:
== END 2023-02-27 14:22 | disposition home or self-care (01) ==
LOC: DIORS 14:21
PROVIDERS: PCP Nurse Practitioner Adult Health; Referring Provider Nurse Practitioner Adult Health; Visit Provider Student in an Organized Health Care Education/Training Program
DX: M25.561 Pain in right knee (principal)
CPT/HCPCS: 73562

== ENCOUNTER 2023-03-21 01:22 | Outpatient (CLI) | payer BC, SELFPAY ==
--- NOTE | 2023-03-21 07:45 | DI.MRI_ITS ---
Exam(s) MR LOWER JOINT RT WO EXAM: MR LOWER JOINT RT WO CLINICAL HISTORY: R KNEE PAIN, TEAR MEDIAL MENISCUS, [id number]. TECHNIQUE: Multiplanar multisequence MRI was performed. COMPARISON: CR XR KNEE RT 3V AP,LAT,BRITTANY from 02/27/2023 FINDINGS: BONES: There is no fracture or contusion pattern. JOINTS: No joint effusion is present. Articular cartilage: Patellofemoral joint: Focal defect extending down to bone at the patellar apex. Medial femoral tibial joint: Articular cartilage is unremarkable. Lateral femoral tibial joint: Articular cartilage is unremarkable. TENDONS: Extensor mechanism: Unremarkable. Medial retinaculum: Unremarkable. Lateral retinaculum: Unremarkable. Popliteus: Unremarkable. MUSCLES: Edema in the popliteus muscle. MENISCI: The medial meniscus is unremarkable. The anterior horn and body of the lateral meniscus are diminutive. Consistent with postsurgical change.. SOFT TISSUES: Presumed postsurgical scarring seen in Hoffa's fat anterior to the lateral meniscus. M ild anterior edema. LIGAMENTS: Anterior Cruciate: Small amount of fluid. Definite tear. Posterior Cruciate: Unremarkable. Medial Collateral:Unremarkable. Lateral Collateral: Unremarkable. IMPRESSION: Focal chondral defect at the patellar apex. Postsurgical changes of the anterior horn of the and body of the lateral meniscus. Popliteus muscle strain. Tendon appears intact. Question of ACL sprain. DATA REPOSITORY:
== END 2023-03-21 01:42 ==
LOC: DI 01:22
PROVIDERS: PCP Nurse Practitioner Adult Health; Visit Provider Student in an Organized Health Care Education/Training Program
DX: S83.241D Other tear of medial meniscus, current injury, right knee, subsequent encounter (principal); X58.XXXD Exposure to other specified factors, subsequent encounter; Z98.890 Other specified postprocedural states
CPT/HCPCS: 73721

== ENCOUNTER → 2023-07-04 02:24 | Outpatient (CLI) | payer BC, SELFPAY ==
--- NOTE | 2023-07-04 07:45 | DI.MAMMO_ITS ---
Exam(s) MAMMO SCREENING EXAM: MAMMO SCREENING CLINICAL HISTORY: screening,z12.39. TECHNIQUE: Bilateral full field digital CC and MLO mammographic images were obtained with 3D tomosyn thesis and utilizing computer aided detection (CAD). COMPARISON: Prior mammograms were reviewed. Prior ultrasound reviewed. This patient underwent remote ultrasound-guided core biopsy of a nodule i n the left breast at [facility] approximately 10 years ago, according to the patient. (Fibroadenoma). FINDINGS: The fibroglandular tissue pattern is again noted be dense, this somewhat decreasing the sensitivity o f the mammogram for finding hidden underlying lesions. Biopsy marker clip in the left breast again noted, centrally located within well-defined noncalcified slightly lobulated nodule which appears unchanged from previous. No new focal left breast findings. In the right breast there is a subtle suggestion of a small nodular density measuring 5 x 5 mm, locat ed 5 cm in from the nipple, lateral of center. Spot compression view and ultrasound recommended. There are no malignant-appearing microcalcification groups in either breast. There is no new significant architectural distortion nor skin thickening-retraction. IMPRESSION: Dense bilateral fibroglandular tissue. Stable appearance of previously biopsied left breast nodule, apparently fibroadenoma. Subtle suggestion of 5 mm nodule in the opposite-right breast. Recommend spot compression view and u ltrasound of the right breast. BI-RADS Category 0 - Assessment Incomplete: Need additional imaging evaluation Breast Density - Category D - Extremely dense Breast density Category C or D implies that the patient has dense breast tissue. Dense breast tissue can make it harder to find cancer on a mammogram. Dense breast tissue is also associated with an incr eased risk of breast cancer. This information about the result of the mammogram report was provided to the patient to raise their awareness. Use this report when you speak with the patient about their risks for breast cancer, which includes their family history. At that time, you may recommend additional screening tests (Ultrasoun d or MRI) as these tests may add significant information. A negative radiographic report should not delay biopsy if a dominant or clinically suspicious mass is present. Up to ten percent of cancers are not identified on mammography. A negative report may reinforce clinical impression. Adenosis and dense breasts may obscure an underlying neoplasm. False positive reports average 6 to 10%. Patient will receive a letter notifying them of these results.
--- NOTE | 2023-07-04 07:48 | DI.US_ITS ---
Exam(s) US BREAST LT COMPLETE EXAM: US BREAST LT COMPLETE CLINICAL HISTORY: interval assessment,short term follow up, r92.8. TECHNIQUE: Complete ultrasound of the LEFT breast was performed including all 4 quadrants, the retro areolar region, and the ipsilateral axilla. COMPARISON: Prior mammograms were reviewed. Prior ultrasounds reviewed. This patient underwent core biopsy of a left breast nodule approximately 10 years ago at outside institution. FINDINGS: Left breast ultrasound: Again noted is a solitary finding which is a previously biopsied lobulated solid nodule at the 4 o'cl ock position which exhibits biopsy marker centrally located within this nodule. This appears unchang ed in size and appearance, measuring 21 mm x 8 mm. There are no other focal findings in all 4 quadrants of the left breast. Scanning of the left axilla is negative for adenopathy IMPRESSION: Stable size and appearance of the previously biopsied lobulated solid nodule at the 4 o'clock positio n of the left breast. No additional nodules in the left breast evident. Please see separate draining mammogram report from today BI-RADS Category 2 - Benign Findings Breast Density - Category D - Extremely dense Breast density Category C or D implies that the patient has dense breast tissue. Dense breast tissue can make it harder to find cancer on a mammogram. Dense breast tissue is also associated with an incr eased risk of breast cancer. This information about the result of the mammogram report was provided to the patient to raise their awareness. Use this report when you speak with the patient about their risks for breast cancer, which includes their family history. At that time, you may recommend additional screening tests (Ultrasoun d or MRI) as these tests may add significant information. A negative radiographic report should not delay biopsy if a dominant or clinically suspicious mass is present. Up to ten percent of cancers are not identified on mammography. A negative report may reinforce clinical impression. Adenosis and dense breasts may obscure an underlying neoplasm. False positive reports average 6 to 10%. Patient will receive a letter notifying them of these results.
== END ==
PROVIDERS: PCP Nurse Practitioner Adult Health; Visit Provider Nurse Practitioner Adult Health
DX: Z12.31 Encounter for screening mammogram for malignant neoplasm of breast (principal); R92.8 Other abnormal and inconclusive findings on diagnostic imaging of breast
CPT/HCPCS: 76642; 77063; 77067

== ENCOUNTER → 2023-07-11 00:26 | Outpatient (CLI) | payer BC, SELFPAY ==
--- NOTE | 2023-07-11 | DI.MAMMO_ITS ---
Exam(s) MG MAMMO SCREEN CALL BACK UNI US BREAST RT LIMITED EXAM: MG MAMMO SCREEN CALL BACK UNI and U/S breast RT limited CLINICAL HISTORY: F/U MAMMO, 5 MM NODULE RT BREAST. TECHNIQUE: Craniocaudal and mediolateral oblique Full Field Digital Mammography views of the right b reast with Computer Aided Diagnosis followed by Tomosynthesis and right breast ultrasound. COMPARISON: Comparison is made with prior examinations. FINDINGS: Mammography/Tomosynthesis: Masses/Architectural Distortion: The area of concern on the mammogram does not persist on the spot co mpression view. No suspicious masses or areas of architectural distortion are seen. Microcalcifictions: No suspicious pleomorphic-type are seen. Skin Thickening/Nipple Retraction: None. Limited right breast US: Echotexture: Normal appearance of the glandular tissue. Shadowing: No suspicious foci. Cyst: None. Solid lesions: The area at 8 o'clock appears to represent fibroglandular tissue under real-time scann ing. Ductal dilation: None. IMPRESSION: 1. No Rodney evidence of malignancy is noted. 2. A six-month follow-up right mammogram and ultrasound is requested for re-evaluation. 3. The findings were discussed with the patient on the date of the examination. BI-RADS Category 3 - 6 month - Probably Benign Finding: Recommend follow-up imaging in 6 months Breast Density - Category C - Heterogeneously dense Breast density Category C or D implies that the patient has dense breast tissue. Dense breast tissue can make it harder to find cancer on a mammogram. Dense breast tissue is also associated with an incr eased risk of breast cancer. This information about the result of the mammogram report was provided to the patient to raise their awareness. Use this report when you speak with the patient about their risks for breast cancer, which includes their family history. At that time, you may recommend additional screening tests (Ultrasoun d or MRI) as these tests may add significant information. A negative radiographic report should not delay biopsy if a dominant or clinically suspicious mass is present. Up to ten percent of cancers are not identified on mammography. A negative report may reinforce clinical impression. Adenosis and dense breasts may obscure an underlying neoplasm. False positive reports average 6 to 10%. Patient will receive a letter notifying them of these results.
== END ==
PROVIDERS: PCP Nurse Practitioner Adult Health; Visit Provider Nurse Practitioner Adult Health
DX: Z12.31 Encounter for screening mammogram for malignant neoplasm of breast (principal); N63.14 Unspecified lump in the right breast, lower inner quadrant
CPT/HCPCS: 76642; 77063; 77067

== ENCOUNTER → 2024-01-10 00:07 | Outpatient (CLI) | payer BC, SELFPAY ==
--- NOTE | 2024-01-10 07:15 | DI.US_ITS ---
Exam(s) MG MAMMO DIAGNOSTIC UNI US BREAST RT COMPLETE EXAM: MG MAMMO DIAGNOSTIC UNI-RIGHT AND COMPLETE RIGHT BREAST ULTRASOUND CLINICAL HISTORY: RIGHT interval F/U, 6 MO F/U RT FINDINGS,R92.8. TECHNIQUE: UNILATERAL RIGHT BREAST CC AND MLO mammographic images were obtained with 3D tomosynthesi s technique and utilizing computer aided detection (CAD). ALSO performed spot compression 3D cc view of the right breast. Complete right breast ultrasound was performed including all 4 quadrants and the retroareolar region. COMPARISON: Prior mammograms were reviewed, the most recent being June 2023. Ultrasound performe d at that time was also reviewed. FINDINGS: Diagnostic right breast mammogram: The fibroglandular tissue pattern is again noted be dense which de creases the sensitivity mammogram for finding hidden underlying lesions.. Today's mammogram and spot compression view are clavicle for the presence of a nodule in the lateral aspect. We proceeded with ultrasound Complete right breast ultrasound: Breast pattern is quite dense. There is a solitary finding at the 8 o'clock position again noted which is either asymmetric tissue w ithin an area of very dense tissue or possible fibroadenoma. This is wider than taller and exhibits similar appearance to ultrasound of 07/11/2023. Measures 1.9 cm x 0.6 cm. No decreased through [place] sm[place]. It exhibits uniform increased through transmission. There are no other focal ultrasound findings in all 4 quadrants. Scanning of the right axilla is negative for adenopathy. IMPRESSION: Dense fibroglandular tissue on mammogram and ultrasound. At the 8 o'clock position there is a wider than taller nodular density seen on ultrasound which is ei ther asymmetric island of normal tissue within an area of very dense tissue or possibly a fibroadenom a measuring approximately 19 x 6 mm. This patient informs me that she had a remote biopsy in the opp osite-left breast which was negative for malignancy but might have been a fibroadenoma. Appropriate follow-up is to repeat the ultrasound examination at the time for next yearly mammogram w cornelius is in 6 months from now. Given the density of her fibroglandular tissue and this finding in the right breast and prior significant history in the left breast I recommend at that time that she unde rgo complete bilateral breast ultrasound. The patient was informed of the findings and follow-up recommendations by myself prior to leaving the department today. BI-RADS Category 3 - 6 month - Probably Benign Finding: Recommend follow-up mammography in 6 months Breast Density - Category C - Heterogeneously dense Breast density Category C or D implies that the patient has dense breast tissue. Dense breast tissue can make it harder to find cancer on a mammogram. Dense breast tissue is also associated with an incr eased risk of breast cancer. This information about the result of the mammogram report was provided to the patient to raise their awareness. Use this report when you speak with the patient about their risks for breast cancer, which includes their family history. At that time, you may recommend additional screening tests (Ultrasoun d or MRI) as these tests may add significant information. A negative radiographic report should not delay biopsy if a dominant or clinically suspicious mass is present. Up to ten percent of cancers are not identified on mammography. A negative report may reinforce clinical impression. Adenosis and dense breasts may obscure an underlying neoplasm. False positive reports average 6 to 10%. Patient will receive a letter notifying them of these results.
== END ==
PROVIDERS: PCP Nurse Practitioner Adult Health; Visit Provider Nurse Practitioner Adult Health
DX: R92.8 Other abnormal and inconclusive findings on diagnostic imaging of breast (principal); Z12.31 Encounter for screening mammogram for malignant neoplasm of breast
CPT/HCPCS: 76642; 77061; 77065; G0279

== ENCOUNTER 2024-08-14 00:35 | Outpatient (CLI) | payer BC, SELFPAY ==
--- OUTSIDE RECORDS SUMMARY | 2024-08-14 00:36 | XMS_ITS | Encounter Summary ---
Author Organization [facility] Address [address] [place] [address] Care Team Providers Care Preformer [employer] Name Role Phone Tonya Harp JULIEN Primary Care Provider [phone] Encounter Details Date Type Department Care Team (Late st Contact Info) Description 01/29/2019 Results Only [facility] [phone] Destini Pedroza, DO [address] [place] [address] Social History Tobacco Use Types Packs/Day Years Used Date Smoking Tobacco: Never Assessed Alcohol Use Standard Drinks/Week Comments Yes 2 (1 standard drink = 0.6 oz pur e alcohol) 1-2 TIMES WEEKLY Comments Unknown Sex and Gender Information Value Date Recorded Sex Assigned at Not on file Legal Sex Female 17:53 EST Gender Identity Not on file Sexual Orientation Not on file documented as of this encounter Plan of Treatment Not on file documented as of this encounter Procedures Procedure Name Priority Date/Time Associated Diagnosis Comments PAP TEST- RESULT ONLY Routine 01/29/2019 0:00 EDT documented in this encounter Results * PAP TEST- RESULT ONLY (01/29/2019 0:00 EDT) Pathology Report: CYTOPATHOLOGY REPORT Reports generated via electronic interface contain original data; however they are lacking the format of the original report. Caution should be taken when reading/interpreti ng unformatted reports. Name: ? KAITY DE SOUZA ? Accession #: ? [id number] ? : ? 1980 (Age: 38) ??F ?Collect Date: ? 01/29/2019 ? Location: ? [facility] ? Receive Date: ? 01/30/2019 ? Provider: TONYA HARP SUPERINTENDENT [employer]ORY Copy to: ? Final Report SPECIMEN ADEQUACY ? Satisfactory for Evaluation - transformation zone component present GENERAL CATEGORIZATION ? Negative for Intraepithelial Lesion or Malignancy ?? Hormonal/Contracep tive status: None Other: Additional clinical information: Z12.4 Z11.51 Specimen/Source: ??Pap Test, Cervix/Endocervix, ThinPrep Imaging System with manual evaluation Document reviewed and electronically signed by: ? LUISA Mckenna(ASCP) ? Report ??Date: 02/02/2019 12:47 HPV with Pap Test ? Date Ordered: ? 02/02/2019 ? Status: ?? Signed Out ?Date Complete: ? 02/03/2019 ? By: ??System Interface ? Date Reported: ? 02/03/2019 ? Interpretation RESULT: Negative for HPV. No E6 or E7 mRNA is detected from HPV types 16,18,31,33,35, 39,45,51,52,56,58, 59,66, and 68 by telegraph printer mechanic mediated amplification. Comments Document reviewed and electronically signed by: ? System Interface ? Report date: 02/03/2019 By the signature above, the attending physician certifies that he/she has personally conducted a gross and/or microscopic examination of the described specimens and rendered or confirmed the above diagnosis. End of Report [facility] 01/29/2019 01/30/2019 us Tonya Harp APRN PATHOLOGY ORDERABLES Mahsa langley Result [facility] [address] [place] [address] documented in this encounter Visit Diagnoses Not on filedocumented in this encounter Care Teams Preformer [employer] Relationship Specialty Start Date End Date Tonya Harp, SUPERINTENDENT [employer]ORY [address] [place] [address] PCP - General 05/29/12 documented as of this encounter
--- OUTSIDE RECORDS SUMMARY | 2024-08-14 00:36 | XMS_ITS | Encounter Summary ---
Author Organization [facility] Address [address] [place] [address] Care Team Providers Care Fruit Packer Name Role Phone Terry Yaritza Romero FURNITURE SANDER Primary Care Provider [phone] Encounter Details Date Type Department Care Team (Late st Contact Info) Description 07/31/2006 Results Only [facility] [address] [place] [address] Barak Neves [address] [place], [place] [phone] Social History Tobacco Use Types Packs/Day Years Used Date Smoking Tobacco: Never Assessed Comments Unknown Sex and Gender Information Value Date Recorded Sex Assigned at Not on file Legal Sex Female 17:53 EST Gender Identity Not on file Sexual Orientation Not on file documented as of this encounter Plan of Treatment Not on file documented as of this encounter Procedures Procedure Name Priority Date/Time Associated Diagnosis Comments CYTOPATHOLOGY Routine 07/31/2006 0:00 EST documented in this encounter Results * CYTOPATHOLOGY (07/31/2006 0:00 EST) Pathology Report: CYTOPATHOLOGY REPORT Reports generated via electronic interface contain original data; however they are lacking the format of the original report. Caution should be taken when reading/interpreti ng unformatted reports. Name: ? KAITY CASON ? Accession #: ? [id number] : ? 1980 (Age: 25) ??F ?Collect Date: ? 07/31/2006 Location: ? [facility] ? Receive Date: ? 08/01/2006 Provider: ?BARAK NEVES CNM Copy to: ? Specimen/Source: ?ThinPrep Pap Test, Cervix/Endocervix, processed on [employer] ThinPrep Imaging System, with manual evaluation Last Menstrual Period: ? 09/03 Menstrual/Pregnanc y Status: ? Post Previous Gynecologic Pathology: ? HSIL: 11/01 HPV: 11/01 LSIL: 03/02 Treatment History: ? Colposcopy: 10/03 ECC Cervical biopsy: Endocx glandular tiss & scant benign sq cells Other: ? Additional clinical information: Pap 2004 & 2005 neg. HPVA - HPV testing requested if ASC-US on the current ThinPrep Pap test. ? SPECIMEN ADEQUACY ? Satisfactory for Evaluation - transformation zone component present GENERAL CATEGORIZATION ? Negative for Intraepithelial Lesion or Malignancy INTERPRETATION ? Reactive cellular changes associated with inflammation present (includes repair). ? Document reviewed and electronically signed by: ? ALEX FERNÁNDEZ MD [facility] ? Report Date: ??08/13/2006 09:14 End of Report [facility] 07/31/2006 08/01/2006 us Barak Neves CNJaden PATHOLOGY ORDERABLES Final Resul t [facility] [address] [place] [address] documented in this encounter Visit Diagnoses Not on filedocumented in this encounter Care Teams Fruit Packer Relationship Specialty Start Date End Date Yaritza Stewart NP [address] [place] [phone] PCP - General 02/11/09 05/28/12 documented as of this encounter
--- OUTSIDE RECORDS SUMMARY | 2024-08-14 00:36 | XMS_ITS | Encounter Summary ---
Author Organization [facility] Address [address] [place] [address] Care Team Providers Care Professor Of Political Science Name Role Phone TerryYaritza Nick LOGGING TRACTOR OPERATOR SWAMP Primary Care Provider [phone] Encounter Details Date Type Department Care Team (Late st Contact Info) Description 10/28/2007 Results Only [facility] - Maple conversion [address] [place] [address] Gio Martin MD 29 [facility] [address] [address] Social History Tobacco Use Types Packs/Day Years [...] Priority Date/Time Associated Diagnosis Comments CYTOPATHOLOGY Routine 10/28/2007 0:00 EST documented in this encounter Results * CYTOPATHOLOGY (10/28/2007 0:00 EST) Pathology Report: CYTOPATHOLOGY REPORT Reports generated via electronic interface contain original data; however they are lacking the format of the original report. Caution should be taken when reading/interpreti ng unformatted reports. Name: ? KAITY CASON ? Accession #: ? [id number] : ? 1980 (Age: 27) ??F ?Collect Date: ? 10/28/2007 Location: ? [facility] ? Receive Date: ? 10/28/2007 Provider: ?GIO MARTIN MD Copy to: ? Specimen/Source: ?ThinPrep Pap Test, Cervix/Endocervix, processed on [email or web address] ThinPrep Imaging System, with manual evaluation Last Menstrual Period: ? 10/20/07 Menstrual/Pregnanc y Status: ? Regular Other: ? Additional clinical information: Del 06/05, nl exam HPVA - HPV testing requested if ASC-US on the current ThinPrep Pap test. ? SPECIMEN ADEQUACY ? Satisfactory for Evaluation - transformation zone component present GENERAL CATEGORIZATION ? Negative for Intraepithelial Lesion or Malignancy INTERPRETATION ? Reactive cellular changes associated with inflammation present (includes repair). ? Document reviewed and electronically signed by: ? CORRIE MCCARTNEY MD ? Report Date: ??11/04/2007 17:08 End of Report [facility] 10/28/2007 10/28/2007 us Gio Martin MD PATHOLOGY ORDERABLES Final Resu lt [facility] [address] [place] [address] documented in this encounter Visit Diagnoses Not on filedocumented in this encounter Care Teams Professor Of Political Science Relationship Specialty Start Date End Date Yaritza Stewart NP [address] [place] [id number] PCP - General 02/11/09 05/28/12 documented as of this encounter
--- OUTSIDE RECORDS SUMMARY | 2024-08-14 00:36 | XMS_ITS | Referral Summary ---
Author Organization [facility] Address [address] [place] [address] Care Team Providers Care Art Psychotherapist Name Role Phone Johana Harp APRN Primary Care Provider [phone] Medications Multivitamins with Minerals Tab Take 1 Tab by mouth daily. Active Active Problems No known active problems Social History Tobacco Use Types Packs/Day Years Used Date Smoking Tobacco: Never Assessed Alcohol Use Standard Drinks/Week Comments Yes 2 (1 standard drink = 0.6 oz pur e alcohol) 1-2 TIMES WEEKLY Comments Unknown Sex and Gender Information Value Date Recorded Sex Assigned at Not on file Legal Sex Female 17:53 EST Gender Identity Not on file Sexual Orientation Not on file Last Filed Vital Signs Vital Sign Reading Time Taken Comments Blood Pressure - - Pulse - - Temperature - - Respiratory Rate - - Oxygen Saturation - - Inhaled Oxygen Concentration - - Weight 67.1 kg (148 lb) 06/03/2012 1047 EDT Height 169.5 cm (5' 6.75) 06/03/2012 1047 EDT Body Mass Index 23.35 06/03/2012 1047 EDT Plan of Treatment Not on file Care Teams Art Psychotherapist Relationship Specialty Start Date End Date Johana Harp APRN [address] [place] [address] [id number] PCP - General 05/29/12
--- OUTSIDE RECORDS SUMMARY | 2024-08-14 00:36 | XMS_ITS | Encounter Summary ---
Author Organization [facility] Address [address] [place] [address] Care Team Providers Care Clinical Cytogenetics Director Name Role Phone Tonya Harp MAPPING ENGINEER Primary Care Provider [phone] Encounter Details Date Type Department Care Team (Late st Contact Info) Description 03/10/2014 Results Only [facility]- PRISM [phone] Tonya Harp, MAPPING ENGINEER [address] [place], [place] [phone] Social History Tobacco Use Types Packs/Day Years [...] Diagnosis Comments PAP TEST- RESULT ONLY Routine 03/10/2014 0:00 EDT documented in this encounter Results * PAP TEST- RESULT ONLY (03/10/2014 0:00 EDT) Pathology Report: CYTOPATHOLOGY REPORT Reports generated via electronic interface contain original data; however they are lacking the format of the original report. Caution should be taken when reading/interpreti ng unformatted reports. Name: ? KAITY DE SOUZA ? Accession #: ? [id number] ? : ? 1980 (Age: 33) ??F ?Collect Date: ? 03/10/2014 ? Location: ? [facility] ? Receive Date: ? 03/15/2014 ? Provider: TONYA HARP MAPPING ENGINEER Copy to: ? Final Report SPECIMEN ADEQUACY ? Satisfactory for Evaluation - transformation zone component absent GENERAL CATEGORIZATION ? Negative for Intraepithelial Lesion or Malignancy ?? Last Menstrual Period: 03/01/14 Previous Gynecologic Pathology: HPV: + 2010 HPV: + 2012 Treatment History: Colposcopy: 2012 Normal cytology Specimen/Source: ??Pap Test, Cervix, ThinPrep Imaging System with manual evaluation Document reviewed and electronically signed by: ? Mary Beth Price, LUISA(ASCP)(IAC) ? Report ??Date: 03/19/2014 10:01 HPV with Pap Test ? Date Ordered: ? 03/18/2014 ? Status: ?? Signed Out ?Date Complete: ? 03/23/2014 ? By: ??System Interface ? Date Reported: ? 03/23/2014 ? Interpretation RESULT: Negative for HPV. No E6 or E7 mRNA is detected from HPV types 16,18,31,33,35, 39,45,51,52,56,58, 59,66, and 68 by sock and stocking ironer mediated amplification. Comments Document reviewed and electronically signed by: ? System Interface ? Report date: 03/23/2014 By the signature above, the attending physician certifies that he/she has personally conducted a gross and/or microscopic examination of the described specimens and rendered or confirmed the above diagnosis. End of Report [facility] 03/10/2014 03/15/2014 us Tonya Harp APRN PATHOLOGY ORDERABLES Mahsa langley Result Performing Organization Address City/State/[facility] Co de Phone Number [facility] [address] [place] [address] documented in this encounter Visit Diagnoses Not on filedocumented in this encounter Care Teams Clinical Cytogenetics Director Relationship Specialty Start Date End Date Tonya Harp APRN [address] [place] [id number] PCP - General 05/29/12 documented as of this encounter
--- OUTSIDE RECORDS SUMMARY | 2024-08-14 00:36 | XMS_ITS | Encounter Summary ---
Author Organization [facility] Address [address] [place] [address] Care Team Providers Care Law Office Receptionist Name Role Phone Tonya Harp DOCUMENT MANAGER Primary Care Provider [phone] Encounter Details Date Type Department Care Team (Late st Contact Info) Description 01/29/[address] Results [address] [facility]- PRISM [phone] Tonya Harp, DOCUMENT MANAGER [address] [place] [address] Social History Tobacco Use Types Packs/Day Years [...] Diagnosis Comments PAP TEST- RESULT ONLY Routine 01/29/2013 0:00 EDT documented in this encounter Results * PAP TEST- RESULT ONLY (01/29/2013 0:00 EDT) Pathology Report: CYTOPATHOLOGY REPORT Reports generated via electronic interface contain original data; however they are lacking the format of the original report. Caution should be taken when reading/interpreti ng unformatted reports. Name: ? KAITY DE SOUZA ? Accession #: ? [id number] ? : ? 1980 (Age: 32) ??F ?Collect Date: ? 01/29/2013 ? Location: ? [facility] ? Receive Date: ? 02/02/2013 ? Provider: TONYA HARP DOCUMENT MANAGER Copy to: ? Final Report SPECIMEN ADEQUACY ? Satisfactory for Evaluation - transformation zone component present GENERAL CATEGORIZATION ? Negative for Intraepithelial Lesion or Malignancy INTERPRETATION ? Reactive cellular changes associated with inflammation present (includes repair). Last Menstrual Period: mid December Hormonal/Contracep tive status: Tubal ligation: around 2006 Previous Gynecologic Pathology: HPV: + 2010 w/negative pap MICHAEL: history of dyslpasia per patient in early Other: Additional clinical information: Specimen/Source: ??Pap Test, Cervix, ThinPrep Imaging System with manual evaluation Document reviewed and electronically signed by: ? JELANI ARMIJO MD ? Report ??Date: 02/10/2013 14:07 HPV with Pap Test ? Date Ordered: ? 02/10/2013 ? Status: ?? Signed Out ?Date Complete: ? 02/12/2013 ? By: ??System Interface ? Date Reported: ? 02/12/2013 ? Interpretation RESULT: Positive for high or intermediate risk HPV. E6 OR E7 mRNA from one or more types of HPV types 16,18,31, 33,35,39,45,51,52, 56,58,59,66, and 68 is detected by paste mixer mediated amplification. High and intermediate risk HPV types are associated with most squamous intraepithelial lesions and cervical cancers. Comments Document reviewed and electronically signed by: ? System Interface ? Report date: 02/12/2013 By the signature above, the attending physician certifies that he/she has personally conducted a gross and/or microscopic examination of the described specimens and rendered or confirmed the above diagnosis. End of Report [facility] 01/29/2013 02/02/2013 us Tonya Harp APRN PATHOLOGY ORDERABLES Mahsa langley Result [facility] [address] [place] [address] documented in this encounter Visit Diagnoses Not on filedocumented in this encounter Care Teams Law Office Receptionist Relationship Specialty Start Date End Date Tonya Harp APRN [address] [place] [address] PCP - General 05/29/12 documented as of this encounter
--- OUTSIDE RECORDS SUMMARY | 2024-08-14 00:36 | XMS_ITS | Clinical Summary ---
Author Organization [facility] Address [address] [place] [address] Care Team Providers Care Construction Materials Tester Name Role Phone Johana Harp APRN Primary Care Provider [phone] Medications Multivitamins with Minerals Tab Take 1 Tab by mouth daily. Active Active Problems No known active problems Surgical History Surgery Date Site/Laterality Comments HERNIA REPAIR BREAST SURGERY Medical History Medical History Date Comments Wears glasses Back pain Social History Tobacco Use Types Packs/Day Years Used Date Smoking Tobacco: Never Assessed Alcohol Use Standard Drinks/Week Comments Yes 2 (1 standard drink = 0.6 oz pur e alcohol) 1-2 TIMES WEEKLY Comments Unknown Sex and Gender Information Value Date Recorded Sex Assigned at Not on file Legal Sex Female 17:53 EST Gender Identity Not on file Sexual Orientation Not on file Obstetrics History Last Filed Vital Signs Vital Sign Reading Time Taken Comments Blood Pressure - - Pulse - - Temperature - - Respiratory Rate - - Oxygen Saturation - - Inhaled Oxygen Concentration - - Weight 67.1 kg (148 lb) 06/03/2012 1047 EDT Height 169.5 cm (5' 6.75) 06/03/2012 1047 EDT Body Mass Index 23.35 06/03/2012 1047 EDT Plan of Treatment Health Maintenance Due Date Last Done Comments Hepatitis C Screen 1980 Hepatitis B Vaccine (1 of 3 - 19+ 3-dose series) 09/13 COVID-19 Vaccine ( - 2023- season) 2024 Care Teams Construction Materials Tester Relationship Specialty Start Date End Date Johana Harp APRN [address] [place] [id number] PCP - General 05/29/12
--- OUTSIDE RECORDS SUMMARY | 2024-08-14 00:36 | XMS_ITS | Encounter Summary ---
Author Organization [facility] Address [address] [place] [address] Care Team Providers Care Spinning And Winding Supervisor Name Role Phone Johana Harp JULIEN Primary Care Provider [phone] Encounter Details Date Type Department Care Team (Late st Contact Info) Description 04/06/2020 Lab Requisition [facility] Pathology & Laboratory Medicine - [facility] [address] [place] [address] Outr Resulting Lab, Provider Social History Tobacco Use Types Packs/Day Years [...] Procedure Name Priority Date/Time Associated Diagnosis Comments ZZCOVID-19 TEST [facility] PCR Today 04/06/2020 13:30 EDT COVID-19 TESTING Routine 04/06/2020 13:3 0 EDT documented in this encounter Results * COVID-19 TEST [facility] PCR (04/06/2020 13:30 EDT) Swab ENTIRE NASOPHARYNX / Unknown 04/06/2020 13:30 EDT 04/06/2020 21:40 EDT us Provider Outr Resulting Lab MICROBIOLOGY - GENER AL ORDERABLES Final Result Performing Organization Address City/State/[facility] de Phone Number [facility] [address] [place] [address] * COVID-19 TESTING (04/06/2020 13:30 EDT) COVID-19 rt-PCR Result Negative Negative 04/07/2020 1:52 EDT [facility] Comment: This test has not been FDA cleared or approved. This test has been authorized by FDA under an EUA for use by authorized laboratories. This test has been authorized only for detection of nucleic acid from 2019-nCoV, not for any other viruses or pathogens. This test is only authorized for the duration of the declaration that circumstances exist justifying the authorization of emergency use of in vitro diagnostic tests for detection and/or diagnosis of 2019-nCoV under section 564(b)(1) of Act, 21 U.S.C ?? 360bbb-3(b) (1), unless the authorization is terminated or revoked sooner. Negative results do not preclude 2019-nCoV infection and should not be used as the sole basis for treatment or other patient management decisions. Negative results must be combined with clinical observations, patient history, and epidemiological information. Performed on the [employer] Fusion instrument Performing Lab [place] [facility] 04/07/2020 1:52 EDT [facility] Swab 04/06/2020 13:3 0 EDT 04/06/2020 21:40 EDT us Provider Outr Resulting Lab MICROBIOLOGY - GENER AL ORDERABLES Final Result Performing Organization Address [facility] Co de Phone Number [facility] [address] [place] [address] documented in this encounter Visit Diagnoses Not on filedocumented in this encounter Additional Health Concerns Infection Onset Date Last Indicated Resolved Time R/O COVID-19 04/06/2020 04/06/2020 04/11/2020 22:1 6 EDT documented as of this encounter Care Teams Spinning And Winding Supervisor Relationship Specialty Start Date End Date Johana Harp APRN [address] [place] [address] PCP - General 05/29/12 documented as of this encounter
--- OUTSIDE RECORDS SUMMARY | 2024-08-14 00:36 | XMS_ITS | Encounter Summary ---
Author Organization [facility] Address [address] [place] [address] Care Team Providers Care Retail Representative Name Role Phone Tonya Harp JULIEN Primary Care Provider [phone] Encounter Details Date Type Department Care Team (Late st Contact Info) Description 03/24/2013 Results Only [facility]- [facility]ISM [phone] Maddi Farnsworth MD [address] [place] [address] Social History Tobacco Use Types Packs/Day Years [...] Procedure Name Priority Date/Time Associated Diagnosis Comments SURGICAL PATHOLOGY Routine 03/24/2013 20 :52 EDT documented in this encounter Results * SURGICAL PATHOLOGY (03/24/2013 20:52 EDT) Pathology Report: SURGICAL PATHOLOGY REPORT Reports generated via electronic interface contain original data; however they are lacking the format of the original report. Caution should be taken when reading/interpreti ng unformatted reports. Name: ? KAITY DE SOUZA ? Accession #: ? [id number] ? : ? 1980 (Age: 32) ??F ? Collect Date: ? 03/24/2013 ? Location: ? [facility] ? Receive Date: ? 03/24/2013 ? Provider: MADDI FARNSWORTH MD Copy to: TONYA TERA RESTAURANT KITCHEN MANAGER ? Final Pathologic Diagnosis: A. ENDOCERVIX, CURETTAGE (ECC): - ??Minute fragments of endocervical glandular epithelium and squamous epithelium with no specific histopathologic diagnosis. - ??No dysplasia. B. CERVIX, 12 O'CLOCK, COLPOSCOPIC BIOPSY: - ??Transformation zone cervical tissue with squamous metaplasia and mild acute and chronic inflammation, tubal metaplasia of endocervical glandular epithelium and reactive epithelial changes. - ??No dysplasia. Document reviewed and electronically signed by: Mele Galvez MD Report ??Date: 03/26/2013 19:24 By the signature above, the attending physician certifies that he/she has personally conducted a gross and/or microscopic examination of the described specimens and rendered or confirmed the above diagnosis. Specimen(s) Received: A. ?ECC B. ? 12 o'clock ectocervical bx Clinical History: Recurrent neg Pap/(+) HPV 2012, for colpo Gross Description: A. ?Received in formalin labelled with proper patient identification (initials H, A) ECC is an aggregate of colon-white tissue fragments admixed with cloudy mucus (1.0 x 1.0 x 0.3 cm). Submitted in toto in A1. B. ?Received in formalin labelled with proper patient identification (initials H, A) ectocervical biopsy 12:00 is a single colon-white tissue fragment (0.6 x 0.3 x 0.2 cm). Submitted intact in [facility] Jones 03/25/2013 08:23 AM End of Report [facility] 03/24/2013 20:5 2 EDT 03/24/2013 20:52 EDT us Maddi Farnsworth MD PATHOLOGY ORDERABLES Final Resu lt [facility] [address] [place] [address] documented in this encounter Visit Diagnoses Not on filedocumented in this encounter Care Teams Retail Representative Relationship Specialty Start Date End Date Tonya aHrp, JULIEN [address] [place] [address] PCP - General 05/29/12 documented as of this encounter
--- OUTSIDE RECORDS SUMMARY | 2024-08-14 00:36 | XMS_ITS | Encounter Summary ---
Author Organization [facility] system Address [address] [place] [address] Care Team Providers Care Charter And Tour Bus Driver Name Role Phone TerryYaritza Nick REPORTS DEVELOPER Primary Care Provider [phone] Encounter Details Date Type Department Care Team (Late st Contact Info) Description 07/30/2005 Results Only [facility] - Maple conversion [address] [place] [address] Gio Martin MD [address] [facility] [address] [place] [address] Social History Tobacco Use Types Packs/Day [...] Priority Date/Time Associated Diagnosis Comments CYTOPATHOLOGY Routine 07/30/2005 0:00 EST documented in this encounter Results * CYTOPATHOLOGY (07/30/2005 0:00 EST) Pathology Report: CYTOPATHOLOGY REPORT Reports generated via electronic interface contain original data; however they are lacking the format of the original report. Caution should be taken when reading/interpreti ng unformatted reports. Name: ? KAITY CASON ? Accession #: ? [id number] : ? 1980 (Age: 24) ??F ?Collect Date: ? 07/30/2005 Location: ? [facility] ? Receive Date: ? 07/31/2005 Provider: ?GIO MARTIN MD Copy to: ? Specimen/Source: ?ThinPrep Pap Test, Cervix/Endocervix, processed on [employer] ThinPrep Imaging System, with manual evaluation Last Menstrual Period: ? 07/20/05 Other: ? HPVA - HPV testing requested if ASC-US on the current ThinPrep Pap test. ? SPECIMEN ADEQUACY ? Satisfactory for Evaluation - transformation zone component present GENERAL CATEGORIZATION ? Negative for Intraepithelial Lesion or Malignancy ? Document reviewed and electronically signed by: ? LUISA Mckenna(ASCP) ? Report Date: ??08/07/2005 09:11 End of Report [facility] 07/30/2005 07/31/2005 us Gio Martin MD PATHOLOGY ORDERABLES Final Resu lt [facility] [address] [place] [address] documented in this encounter Visit Diagnoses Not on filedocumented in this encounter Care Teams Charter And Tour Bus Driver Relationship Specialty Start Date End Date Yaritza Stewart NP [address] [place] [address] PCP - General 02/11/09 05/28/12 documented as of this encounter
--- OUTSIDE RECORDS SUMMARY | 2024-08-14 00:36 | XMS_ITS | Encounter Summary ---
Author Organization [facility] Address [address] [place] [address] Care Team Providers Care Time Clock Repairer Name Role Phone Johana Harp APRN Primary Care Provider [phone] Encounter Details Date Type Department Care Team (Late st Contact Info) Description 06/06/2012 Abstract [facility] - [address] [address] Oscar Bazan MD [address] [place] [address] [place] [address] Social History Tobacco Use Types Packs/Day Years [...] on file documented as of this encounter Visit Diagnoses Not on filedocumented in this encounter Care Teams Time Clock Repairer Relationship Specialty Start Date End Date Johana Harp APRN [address] [place] [id number] PCP - General 05/29/12 documented as of this encounter
--- OUTSIDE RECORDS SUMMARY | 2024-08-14 00:36 | XMS_ITS | Encounter Summary ---
Author Organization [facility] Address [address] [place] [address] Care Team Providers Care Imaging Account Manager Name Role Phone Terry Yaritza Langley STRUCTURES ASSEMBLER Primary Care Provider [phone] Encounter Details Date Type Department Care Team (Late st Contact Info) Description 08/14/2011 Results Only [facility]- [facility] [phone] Tonya Harp, METAL MELTER [address] [place] [address] Social History Tobacco Use Types [...] Diagnosis Comments PAP TEST- RESULT ONLY Routine 08/14/2011 0:00 EST documented in this encounter Results * PAP TEST- RESULT ONLY (08/14/2011 0:00 EST) Pathology Report: CYTOPATHOLOGY REPORT Reports generated via electronic interface contain original data; however they are lacking the format of the original report. Caution should be taken when reading/interpreti ng unformatted reports. Name: ? KAITY DE SOUZA ? Accession #: ? [id number] ? : ? 1980 (Age: 30) ??F ?Collect Date: ? 08/14/2011 ? Location: ? [facility] ? Receive Date: ? 08/16/2011 ? Provider: TONYA HARP METAL MELTER Copy to: ? Final Report SPECIMEN ADEQUACY ? Satisfactory for Evaluation - transformation zone component present GENERAL CATEGORIZATION ? Negative for Intraepithelial Lesion or Malignancy INTERPRETATION ? Reactive cellular changes associated with inflammation present (includes repair). See comment. Comment: ? Dr. Naheed Proctor has reviewed this case in consultation and concurs with the diagnosis. ? Last Menstural Period: 07/30/2011 Specimen/Source: ??Pap Test, Cervix, ThinPrep Imaging System with manual evaluation Document reviewed and electronically signed by: ? LANDEN LONDONO MD ? Report ??Date: 08/24/2011 13:52 HPV with Pap Test ? Date Ordered: ? 08/24/2011 ? Status: ?? Signed Out ?Date Complete: ? 08/28/2011 ? By: ??System Interface ? Date Reported: ? 08/28/2011 ? Interpretation RESULT: Positive for one or more of HPV types 16,18,31,33,35,39, 45, 51,52,56,58,59, or 68. These high/intermediate risk HPV types are associated with some squamous intraepithelial lesions and cervical cancers. Comments Document reviewed and electronically signed by: ? System Interface ? Report date: 08/28/2011 By the signature above, the attending physician certifies that he/she has personally conducted a gross and/or microscopic examination of the described specimens and rendered or confirmed the above diagnosis. End of Report [facility] 08/14/2011 08/16/2011 us Tonya Harp METAL MELTER PATHOLOGY ORDERABLES Mahsa langley Result Performing Organization Address City/State/[facility] Co de Phone Number [facility] [address] [place] [address] documented in this encounter Visit Diagnoses Not on filedocumented in this encounter Care Teams Imaging Account Manager Relationship Specialty Start Date End Date Yaritza Stewart, KASSIE [address] [place] [phone] PCP - General 02/11/09 05/28/12 documented as of this encounter
--- OUTSIDE RECORDS SUMMARY | 2024-08-14 00:36 | XMS_ITS | Encounter Summary ---
Author Organization [facility] Address [address] [place] [address] Care Team Providers Care Experimental Mechanic Electrical Name Role Phone Johana Harp JULIEN Primary Care Provider [phone] Reason for Visit * Reason Comments Scoliosis Back Pain Encounter Details Date Type Department Care Team (Late st Contact Info) Description 06/03/2012 10:30 EDT Office Visit [facility] - [address] [place] [address] Gadiel Fajardo MD [address] [place] [address] [place] [address] Scoliosis (and kyphoscoliosis), idiopathic (Primary Dx) Social History Tobacco Use Types Packs/Day Years Used Date Smoking Tobacco: Never Assessed Comments Unknown Sex and Gender Information Value Date Recorded Sex Assigned at Not on file Legal Sex Female 17:53 EST Gender Identity Not on file Sexual Orientation Not on file documented as of this encounter Last Filed Vital Signs Vital Sign Reading Time Taken Comments Blood Pressure - - Pulse - - Temperature - - Respiratory Rate - - Oxygen Saturation - - Inhaled Oxygen Concentration - - Weight 67.1 kg (148 lb) 06/03/2012 1047 EDT Height 169.5 cm (5' 6.75) 06/03/2012 1047 EDT Body Mass Index 23.35 06/03/2012 1047 EDT documented in this encounter Progress Notes * Gadiel Fajardo MD - 06/03/2012 1206 EDT This office note has been dictated. GADIEL FAJARDO MD documented in this encounter Consult Notes * Gadiel Fajardo MD - 06/03/2012 2407 EDT [facility] [place] [facility] [address] [place] [address] CONSULTATION - 06/03/2012 PROBLEM: 1. Right shoulder pain. 2. History of adolescent idiopathic scoliosis. a. Status post T1-L3 PSF, 1992. SUBJECTIVE: Patient is a 31-year-old woman, right-hand dominant, who had adolescent idiopathic scoliosis treated in a brace with progression and subsequently underwent a T2-L3 posterior fusion in 1992 with CD instrumentation, following which she did well and played sports in high school. She generally had very occasional low back pain starting about 10 years ago and would go to physical therapy on and off and resolve it. Five years ago, at the end of , had a marked increase in her backpain. She went back to therapy and, a year ago, low back symptoms worsened and she got serious thenabout her strengthening. She lost 45 pounds. She started working with trainers and her back pain totally resolved, however, over the last year, she has developed some right periscapular discomfort. She attributes it to as starting it. She notes that it was quite uncomfortable right at the medial border of her scapula over a prominence that could be felt that was crunchy. She went back tophysical therapy, doing some modalities and ibuprofen and the symptoms have generally resolved overthe last month or two doing those maneuvers. She had no other specific treatment. She comes in today wondering what the prominences are, why she developed this and what she can look forward to She denies fevers, chills, night sweats, weight loss, loss of bowel or bladder control. PAST MEDICAL HISTORY: No known allergies. MEDICATIONS: A multivitamin and vitamin D. 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 She is a nonsmoker, has 2 children. FAMILY HISTORY: No family history of scoliosis. OBJECTIVE: Patient has some tenderness to palpation at the inferior angle of the scapular and the right paraspinal region over a prominent hook, no fluctuance, erythema or masses, 5/5 all upper and lower extremity muscle groups. DIAGNOSTIC DATA: X-rays, full length PA and lateral show a T2-L3 posterior CD hook instrumentation construct with a solid fusion, mild degeneration at L3-4, 4-5, 5-1. She is balanced coronally and sagittally. Fusion is completely solid. ASSESSMENT: Patient with a hook bursitis. Symptoms are quite common and intermittent. I discussed repetitive use may likely to flare it up. The more she works on periscapular strengthening; the less likely it is to become symptomatic. If it does, would then start with rest, ice, anti-inflammatories, PT modalities and, if severe symptoms over 4 to 6 weeks, could always do a local bursa injection and, ultimately, if she has severe pain that is quite limiting over many months, could consider hardware removal, but it is very unlikely would ever get to that stage. She was happy with this discussion and is going to continue with her current exercise regimen working with personal trainers core andth strengthening and cardiovascular conditioning. PLAN: 1. Activities as tolerated without restriction. 2. Continue with current exercise regimen. 3. Follow up p.r.n. Electronically Signed by Gadiel Fajardo MD 06/05/2012 15:33 Gadiel Fajardo MD - Gadiel Fajardo MD - Job ID: SM Doc ID: [id number] Ext Doc ID: [id number] cc: Johana Harp APRN documented in this encounter Plan of Treatment Not on file documented as of this encounter Visit Diagnoses Diagnosis Scoliosis (and kyphoscoliosis), idiopathic- Primary documented in this encounter Historical Medications * This list may reflect changes made after this encounter. Multivitamins with Minerals Tab Take 1 Tab by mouth daily. added in this encounter Care Teams Experimental Mechanic Electrical Relationship Specialty Start Date End Date Johana Harp APRN [address] [place] [address] PCP - General 05/29/12 documented as of this encounter
--- OUTSIDE RECORDS SUMMARY | 2024-08-14 00:36 | XMS_ITS | Encounter Summary ---
Author Organization [facility] Address [address] [place] [address] Care Team Providers Care Unit Aid Name Role Phone Yaritza Soni CAR CONDITIONER Primary Care Provider Encounter Details Date Type Department Care Team (Late st Contact Info) Description 04/21/2009 Orders Only [facility] Laboratory Services - [facility] ([facility] [address] [place] [address] Yaritza Soni, CAR CONDITIONER [address] [place] [address] [address] [place] [address] Social History Tobacco Use Types Packs/Day Years [...] Priority Date/Time Associated Diagnosis Comments CYTOPATHOLOGY Routine 04/21/2009 0:00 EDT documented in this encounter Results * CYTOPATHOLOGY (04/21/2009 0:00 EDT) Pathology Report: CYTOPATHOLOGY REPORT ? Reports generated via electronic interface contain original data; ? however they are lacking the format of the original report. ? Caution should be taken when reading/interpreti ng unformatted reports. ? Name: ? KAITY CASON L ? Accession #: ? [id number] ? : ? 1980 (Age: 28) ??F ?Collect Date: ? 04/21/2009 ? Location: ? [facility] ? Receive Date: ? 04/25/2009 ? Provider: ?YARITZA L SONI CAR CONDITIONER ? Copy to: ? Specimen/Source: ?Pap Test, Cervix/Endocervix, ThinPrep Imaging System ? with manual evaluation ? Last Menstrual Period: ? 7/2/09 ? Other: ? HPVA - HPV testing requested if ASC-US on the current ThinPrep Pap test. ? SPECIMEN ADEQUACY ? Satisfactory for Evaluation ? - transformation zone component present ? GENERAL CATEGORIZATION ? Negative for Intraepithelial Lesion or Malignancy ? Document reviewed and electronically signed by: ? Mary Beth Price, CT(ASCP)(IAC) ? Report Date: ??04/26/2009 15:12 ? End of Report ? ETIENNE AHUJA 04/21/2009 04/25/2009 Yaritza Soni CAR CONDITIONER PATHOLOGY ORDERABLES Final Result Performing Organization Address City/State/[facility] Co de Phone Number ETIENNE AHUJA [address] [place] [address] documented in this encounter Visit Diagnoses Not on filedocumented in this encounter Care Teams Unit Aid Relationship Specialty Start Date End Date Yaritza Soni NP [facility] [address] [place] [phone] PCP - General 02/11/09 05/28/12 documented as of this encounter
--- OUTSIDE RECORDS SUMMARY | 2024-08-14 00:36 | XMS_ITS | Encounter Summary ---
Author Organization [facility] Address [address] [place] [address] Care Team Providers Care Behavior Therapist Name Role Phone TerryYaritza Nick ORGAN TUNER Primary Care Provider [phone] Encounter Details Date Type Department Care Team (Late st Contact Info) Description 02/14/2009 Orders Only [facility] Spine Program - [address] [address] Oscar Bazan MD [address] [facility] [place] [address] Social History Tobacco Use Types [...] Procedure Name Priority Date/Time Associated Diagnosis Comments SCOLI 2 VIEW AP & LAT 02/14/2009 11:24 EDT documented in this encounter Results * SCOLI 2 VIEW AP & LAT (02/14/2009 11:24 EDT) Anatomical Region Laterality Modality Other 02/14/2009 11:2 4 EDT 02/16/2009 16:25 EDT Narrative 02/16/2009 16:25 EDT ENTIRE SPINE AP ??February 14, 2009 11:24:00 AM Signs and Symptoms: ??Scoliosis Findings: PA and lateral upright views of the entire spine were obtained without comparison. There is severe rotatory dextroscoliosis of the thoracic spine and compensatory curve of the lumbar spine. Intact posterior rods and lamina hooks extend from the upper thoracic spine through the mid lumbar spine. Multiple surgical clips are in the paraspinal region. The left iliac wing is above the right iliac wing by approximately 8mm. I have personally reviewed the images and the above interpretation and agree with the findings. Procedure Note Federico Sanford MD / Federico Sanford MD / Federico Sanford MD - 02/16/2009 ENTIRE SPINE AP February 14, 2009 11:24:00 AM Signs and Symptoms: Scoliosis Findings: PA and lateral upright views of the entire spine were obtained without comparison. There is severe rotatory dextroscoliosis of the thoracic spine and compensatory curve of the lumbar spine. Intact posterior rods and lamina hooks extend from the upper thoracic spine through the mid lumbar spine. Multiple surgical clips are in the paraspinal region. The left iliac wing is above the right iliac wing by approximately 8mm. I have personally reviewed the images and the above interpretation and agree with the findings. us Oscar Bazan MD IMG DIAGNOSTIC IMAGING O RDERABLES Final Result documented in this encounter Visit Diagnoses Not on filedocumented in this encounter Care Teams Behavior Therapist Relationship Specialty Start Date End Date Yaritza Stewart, KASSIE [address] [place] [address] PCP - General 02/11/09 05/28/12 documented as of this encounter
--- OUTSIDE RECORDS SUMMARY | 2024-08-14 00:36 | XMS_ITS | Encounter Summary ---
Author Organization [facility] Address [address] [place] [address] Care Team Providers Care Special Crimes Investigator Name Role Phone Loyd Johana Nick VICTORIA Primary Care Provider [phone] Reason for Referral * Radiology Services (Routine/Next Available) - Closed Specialty Diagnoses / Procedures Referred By Contac t Referred To Contact Diagnoses Scoliosis (and kyphoscoliosis), idiopathic Procedures SCOLI 2 VIEW AP & LAT Oscar Bazan MD Phone: tel: fax: Referral ID Status Reason Start Date Expiration Date Visits Re quested Visits Authorized [id number] Closed 05/29/2012 1 1 Reason for Visit * Reason Onset Date Comments Scoliosis 05/29/2012 Encounter Details Date Type Department Care Team (Late st Contact Info) Description 05/29/2012 Orders Only [facility] Spine Program - [address] [address] Oscar Bazan MD [address] [place] [address] [place] [address] Scoliosis (and kyphoscoliosis), idiopathic (Primary [...] Comments SCOLI 2 VIEW AP & LAT Routine 06/03/2012 10:43 EDT Scoliosis (and kyphoscoliosis), idiopathic documented in this encounter Results * SCOLI 2 VIEW AP & LAT (06/03/2012 10:43 EDT) Anatomical Region Laterality Modality Other 06/03/2012 10:4 3 EDT 06/05/2012 16:04 EDT Narrative 06/05/2012 16:04 EDT ENTIRE SPINE AP ??June 03, 2012 10:43:00 AM Signs and Symptoms: ??737.30-SCOLIOSIS (AND KYPHOSCOLIOSIS), [id number]; Scoliosis Findings: Upright PA and lateral radiographs of the entire spine demonstrate posterior fusion hardware extending from the upper thoracic spine through the mid lumbar spine. Alignment is unchanged compared to prior study of 02/14/2009. No hardware failure is identified. The hips are well formed. The lungs are clear and the heart is normal in size. The bowel gas pattern is nonspecific. The sacroiliac joints are normal in appearance. Residual scoliotic curvature is similar to prior. Impression: Scoliosis with intact hardware. Procedure Note 06/05/2012 ENTIRE SPINE AP June 03, 2012 10:43:00 AM Signs and Symptoms: 737.30-SCOLIOSIS (AND KYPHOSCOLIOSIS), [id number]; Scoliosis Findings: Upright PA and lateral radiographs of the entire spine demonstrate posterior fusion hardware extending from the upper thoracic spine through the mid lumbar spine. Alignment is unchanged compared to prior study of 02/14/2009. No hardware failure is identified. The hips are well formed. The lungs are clear and the heart is normal in size. The bowel gas pattern is nonspecific. The sacroiliac joints are normal in appearance. Residual scoliotic curvature is similar to prior. Impression: Scoliosis with intact hardware. us Oscar Bazan MD IMG DIAGNOSTIC IMAGING O RDERABLES Final Result documented in this encounter Visit Diagnoses Diagnosis Scoliosis (and kyphoscoliosis), idiopathic- Primary documented in this encounter Care Teams Special Crimes Investigator Relationship Specialty Start Date End Date Johana Harp, BENDING PRESS OPERATOR [address] [place] [address] PCP - General 05/29/12 documented as of this encounter
--- OUTSIDE RECORDS SUMMARY | 2024-08-14 00:37 | XMS_ITS | Encounter Summary ---
Author Organization [facility] Address [address] [place] [address] Care Team Providers Care Order Filler Name Role Phone Yaritza Soni GLUER AND SLICER HAND Primary Care Provider Encounter Details Date Type Department Care Team (Late st Contact Info) Description 04/23/2001 Results Only [facility] [address] [place] [address] Yaritza Soni, GLUER AND SLICER HAND [address] [place] [address] [address] [place] [address] Social History Tobacco Use Types [...] Priority Date/Time Associated Diagnosis Comments CYTOPATHOLOGY Routine 04/23/2001 0:00 EDT documented in this encounter Results * CYTOPATHOLOGY (04/23/2001 0:00 EDT) Pathology Report: CYTOPATHOLOGY REPORT Reports generated via electronic interface contain original data; however they are lacking the format of the original report. Caution should be taken when reading/interpreti ng unformatted reports. Name: ? KAITY CASON ? Accession #: ? [id number] : ? 1980 (Age: 20) ??F ?Collect Date: ? 04/23/2001 Location: ? [facility] ? Receive Date: ? 04/25/2001 Provider: ?YARITZA SONI GLUER AND SLICER HAND Copy to: ? Specimen/Source: ?ThinPrep Pap Test, Cervix/Endocervix Last Menstrual Period: ? 04/09/01 ? SPECIMEN ADEQUACY ? Satisfactory for evaluation. GENERAL CATEGORIZATION ? Benign Cellular Changes DESCRIPTIVE DIAGNOSIS ? Predominance of coccobacilli present consistent with shift in vaginal willi. ? Document reviewed and electronically signed by: ? Maru Salinas MD PhD ? Report Date: ??05/02/2001 14:21 End of Report ETIENNE AHUJA 04/23/2001 04/25/2001 us Yaritza Soni GLUER AND SLICER HAND PATHOLOGY ORDERABLES Final Result Performing Organization Address City/State/[facility] Co de Phone Number [facility] [address] [place] [address] documented in this encounter Visit Diagnoses Not on filedocumented in this encounter Care Teams Order Filler Relationship Specialty Start Date End Date Yaritza Soni NP [facility] [address] [place] [address] PCP - General 02/11/09 05/28/12 documented as of this encounter
--- OUTSIDE RECORDS SUMMARY | 2024-08-14 00:37 | XMS_ITS | Encounter Summary ---
Author Organization [facility] Address [address] [place] [address] Care Team Providers Care Wheel Molder Name Role Phone TerryYaritza STAFF INTERPRETER Primary Care Provider [phone] Encounter Details Date Type Department Care Team (Late st Contact Info) Description 10/04/2003 Results Only [facility] - [facility] [address] [place] [address] Gio Martin MD [address] [place] [address] Social History Tobacco Use Types [...] Procedure Name Priority Date/Time Associated Diagnosis Comments HPV DETECTION, HIGH RISK TYPES Routine 10/04/2003 10:00 EST CYTOPATHOLOGY Routine 10/04/2003 0:00 EST SURGICAL PATHOLOGY Routine 10/04/2003 0: 00 EST documented in this encounter Results * HUMAN PAPILLOMA VIRUS DNA TEST (10/04/2003 10:00 EST) Specimen Description Cervix, ThinPrep vial [facility] Result Negative for HPV types 16, 18, 31, 33, 35, 39, 45, 51, 52, 56, 58, 59, and 68. [facility] Report Status Final [id number] [facility] 10/04/2003 10:0 0 EST 10/07/2003 13:16 EST us Gio Martin MD MICROBIOLOGY - GENERAL ORDERABL ES Final Result [facility] [address] [place] [address] * SURGICAL PATHOLOGY (10/04/2003 0:00 EST) Pathology Report: SURGICAL PATHOLOGY REPORT Reports generated via electronic interface contain original data; however they are lacking the format of the original report. Caution should be taken when reading/interpreti ng unformatted reports. Name: ? KAITY CASON ? Accession #: ? [id number] ? : ? 1980 (Age: 23) ??F ? Collect Date: ? 10/04/2003 ? Location: ? [facility] ? Receive Date: ? 10/04/2003 ? Provider: GIO MARTIN MD Copy to: YARITZA SONI STAFF INTERPRETER ? Final Pathologic Diagnosis: ? Endocervix, curettage: - Benign endocervical glandular tissue and scant benign squamous cells. Comment: ? Deeper sections have been examined on this specimen and revealed no dysplasia. ??Dr. Destini Davis has reviewed this case in consultation in conjunction with previous cytology specimen ([id number]) that shows low-grade squamous intraepithelial lesion. The current ECC, however, shows no evidence of dysplasia. (Dr. Mckeon)/[facility] Document reviewed and electronically signed by: Mele Galvez MD Report ??Date: 10/06/2003 14:38 By the signature above, the attending physician certifies that he/she has personally conducted a gross and/or microscopic examination of the described specimens and rendered or confirmed the above diagnosis. Specimen(s) Received: ? Endo cx curettage Clinical History: ? LSIL 03/02; (+) HPV 08/31; nl colpo; ECC today Gross Description: ? Received in formalin labelled Cason and endo cx is approximately 1.0 cc of loosely aggregated colon tissue, mucoid material, and hemorrhage. ??The specimen is submitted entirely in one cassette. ??(Dr. Mckeon)/[facility] End of Report ETIENNE AHUJA 10/04/2003 10/04/2003 15: 09 EST us Gio Martin MD PATHOLOGY ORDERABLES Final Resu lt [facility] [address] [place] [address] * CYTOPATHOLOGY (10/04/2003 0:00 EST) Pathology Report: CYTOPATHOLOGY REPORT Reports generated via electronic interface contain original data; however they are lacking the format of the original report. Caution should be taken when reading/interpreti ng unformatted reports. Name: ? KAITY CASON ? Accession #: ? [id number] : ? 1980 (Age: 23) ??F ?Collect Date: ? 10/04/2003 Location: ? [facility] ? Receive Date: ? 10/05/2003 Provider: ?GIO MARTIN MD Copy to: ? Specimen/Source: ?ThinPrep Pap Test, Cervix/Endocervix Last Menstrual Period: ? 09/25/03 Previous Gynecologic Pathology: ? HSIL: 11/01 HPV LSIL: 03/26/03 Other: ? Colposcopy Pap and/or biopsy in progress HPVDX - HPV testing requested regardless of diagnosis on current ThinPrep Pap test. ? SPECIMEN ADEQUACY ? Satisfactory for Evaluation - transformation zone component present GENERAL CATEGORIZATION ? Negative for Intraepithelial Lesion or Malignancy ? Document reviewed and electronically signed by: ? Marisa Black, LUISA(ASCP) ? Report Date: ??10/07/2003 09:43 End of Report ETIENNE AHUJA 10/04/2003 10/05/2003 us Gio Martin MD PATHOLOGY ORDERABLES Final Resu lt Performing Organization Address City/State/[facility] Co de Phone Number [facility] [address] [place] [address] documented in this encounter Visit Diagnoses Not on filedocumented in this encounter Care Teams Wheel Molder Relationship Specialty Start Date End Date Yaritza Soni, KASSIE [address] [place] [address] PCP - General 02/11/09 05/28/12 documented as of this encounter
--- OUTSIDE RECORDS SUMMARY | 2024-08-14 00:37 | XMS_ITS | Encounter Summary ---
Author Organization [facility] Address [facility] [place] [address] Care Team Providers Care Engineer Soils Name Role Phone Yaritza Stewart APRN Primary Care Provider [phone] Encounter Details Date Type Department Care Team (Late st Contact Info) Description 07/02/2019 External Results [place] [phone] Provider, Scanning Social History Tobacco Use Types Packs/Day Years Used Date Smoking Tobacco: Never Assessed Sex and Gender Information Value Date Recorded Sex Assigned at Not on file Gender Identity Not on file Sexual Orientation Not on file documented as of this encounter Plan of Treatment Not on file documented as of this encounter Procedures Procedure Name Priority Date/Time Associated Diagnosis Comments SURGICAL PATHOLOGY SCAN Routine 07/02/2019 documented in this encounter Results * Scan Doc: Surgical Pathology (07/02/2019) Historical Provider MD DEJESUS MGR SCAN EX T ORDR/RSLT documented in this encounter Visit Diagnoses Not on filedocumented in this encounter Care Teams Engineer Soils Relationship Specialty Start Date End Date Yaritza Stewart APRN [address] [place] [address] PCP - General 08/22/10 documented as of this encounter
--- OUTSIDE RECORDS SUMMARY | 2024-08-14 00:37 | XMS_ITS | Encounter Summary ---
Author Organization [facility] Address [address] [place] [address] Care Team Providers Care Controls Project Engineer Name Role Phone Unavailable Primary Care Provider Unavailabl e Encounter Details Date Type Department Care Team (Latest Contact Info) Description 02/26/2002 11:07 EDT - 02/26/2002 11:59 EDT Hospital Encounter [facility] - Other [address] [place] [address] [address] [place], [place] [address] Unknown, Provider, MD Discharge Disposition: Auto Discharge Social History Tobacco Use Types Packs/Day Years Used Date Smoking Tobacco: Never Assessed Comments Unknown Sex and Gender Information Value Date Recorded Sex Assigned at Not on file Legal Sex Female 17:53 EST Gender Identity Not on file Sexual Orientation Not on file documented as of this encounter Discharge Disposition Disposition Code Departure Means Destination Auto Discharge documented in this encounter Plan of Treatment Pending Results Name Type Priority Associated Diagnoses Date /Time OUTSIDE CD - OTHER NEURO Imaging 04/25/2012 10:21 EDT OUTSIDE CD - OTHER NEURO Imaging 04/25/2012 10:21 EDT Scheduled Orders Name Type Priority Associated Diagnoses Orde r Schedule OUTSIDE CD - OTHER NEURO Imaging For medications that can be administered at any time during the hospitalization for visit such as immunizations. for 1 Occurrences starting 04/25/2012 OUTSIDE CD - OTHER NEURO Imaging For medications that can be administered at any time during the hospitalization for visit such as immunizations. for 1 Occurrences starting 04/25/2012 documented as of this encounter Procedures Procedure Name Priority Date/Time Associated Diagnosis Comments HPV DETECTION, HIGH RISK TYPES Routine 02/26/2002 9:10 EDT CYTOPATHOLOGY Routine 02/26/2002 0:00 EDT documented in this encounter Results * HUMAN PAPILLOMA VIRUS DNA TEST (02/26/2002 9:10 EDT) Specimen Description Cervix, ThinPrep vial [facility] Result Positive for one or more of HPV types 16,18,31,33,35 ,39,45,51,52,5 6,58,59, or 68. These high/intermedi ate risk HPV types are associated with dysplasia and some cervical cancers. [facility] Report Status Final [id number] [facility] 02/26/2002 9:10 EDT 03/05/2002 12:54 EDT Barak Neves CNM MICROBIOLOGY - GENERAL ORDERABLE S Final Result [facility] [address] [place] [address] * CYTOPATHOLOGY (02/26/2002 0:00 EDT) Pathology Report: CYTOPATHOLOGY REPORT Reports generated via electronic interface contain original data; however they are lacking the format of the original report. Caution should be taken when reading/interpreti ng unformatted reports. Name: ? KAITY CASON ? Accession #: ? [id number] : ? 1980 (Age: 21) ??F ?Collect Date: ? 02/26/2002 Location: ? [facility] ? Receive Date: ? 02/27/2002 Provider: ?BARAK NEVES CNM Copy to: ? Specimen/Source: ?ThinPrep Pap Test, Cervix/Endocervix Last Menstrual Period: ? 10/02/01 Menstrual/Pregnanc y Status: ? Previous Gynecologic Pathology: ? 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 HPVDX - HPV testing requested regardless of diagnosis on current ThinPrep Pap test. ? SPECIMEN ADEQUACY ? Satisfactory for Evaluation - transformation zone component present GENERAL CATEGORIZATION ? Negative for Intraepithelial Lesion or Malignancy INTERPRETATION ? Reactive cellular changes associated with inflammation present (includes repair). ? Document reviewed and electronically signed by: ? Dominga Barr MD ? Report Date: ??03/04/2002 09:07 End of Report [facility] 02/26/2002 02/27/2002 Barak Neves CN PATHOLOGY ORDERABLES Final Resul t [facility] [address] [place] [address] documented in this encounter Visit Diagnoses Not on filedocumented in this encounter
--- OUTSIDE RECORDS SUMMARY | 2024-08-14 00:37 | XMS_ITS | Encounter Summary ---
Author Organization [facility] Address [address] [place] [address] Care Team Providers Care Apple Turner Name Role Phone TerryYaritza Nick SHEAR OPERATOR HELPER Primary Care Provider [phone] Encounter Details Date Type Department Care Team (Late st Contact Info) Description 05/19/2004 Results Only [facility] - Maple conversion [address] [place] [address] Gio Martin MD 29 [facility] [address] [place] [address] Social History Tobacco Use Types [...] Priority Date/Time Associated Diagnosis Comments CYTOPATHOLOGY Routine 05/19/2004 0:00 EDT documented in this encounter Results * CYTOPATHOLOGY (05/19/2004 0:00 EDT) Pathology Report: CYTOPATHOLOGY REPORT Reports generated via electronic interface contain original data; however they are lacking the format of the original report. Caution should be taken when reading/interpreti ng unformatted reports. Name: ? KAITY CASON ? Accession #: ? [id number] : ? 1980 (Age: 23) ??F ?Collect Date: ? 05/19/2004 Location: ? [facility] ? Receive Date: ? 05/23/2004 Provider: ?GIO MARTIN MD Copy to: ? Specimen/Source: ?ThinPrep Pap Test, Cervix/Endocervix Last Menstrual Period: ? 05/06/2004 ? SPECIMEN ADEQUACY ? Satisfactory for Evaluation - transformation zone component present GENERAL CATEGORIZATION ? Negative for Intraepithelial Lesion or Malignancy ? Document reviewed and electronically signed by: ? Lawson Lee, LUISA(ASCP) ? Report Date: ??05/26/2004 08:20 End of Report [facility] 05/19/2004 05/23/2004 us Gio Martin MD PATHOLOGY ORDERABLES Final Resu lt Performing Organization Address City/State/[facility] Co de Phone Number [facility] [address] [place] [address] documented in this encounter Visit Diagnoses Not on filedocumented in this encounter Care Teams Apple Turner Relationship Specialty Start Date End Date Yaritza Stewart NP [facility] [address] [place] [phone] PCP - General 02/11/09 05/28/12 documented as of this encounter
--- OUTSIDE RECORDS SUMMARY | 2024-08-14 00:37 | XMS_ITS | Encounter Summary ---
Author Organization [facility] Address [facility] [place] [address] Care Team Providers Care Histological Illustrator Name Role Phone Yaritza Stewart APRN Primary Care Provider [phone] Encounter Details Date Type Department Care Team (Late st Contact Info) Description 09/11/2011 [place] [id number] Lucero Bailey MD [facility] DR DIAGNOSTIC [place] [address] Abnormal mammogram, unspecified (Primary Dx) Social History Tobacco Use Types Packs/Day Years Used Date Smoking Tobacco: Never Assessed Sex and Gender Information Value Date Recorded Sex Assigned at Not on file Gender Identity Not on file Sexual Orientation Not on file documented as of this encounter Plan of Treatment Not on file documented as of this encounter Results * Mammo breast US unilateral bilateral (09/12/2011 1:36 PM EST) Anatomical Region Laterality Modality Breast N/A Mammography 09/12/2011 1:36 PM EST Narrative 09/12/2011 4:21 PM EST LEFT BREAST ULTRASOUND ON 09/12/11: ?? DIAGNOSTIC IMAGING SUMMARY: ?? LEFT BREAST LESION 1: SUSPICIOUS (BIRADS Category 4A-low concern for malignancy). ?? Finding: Mass. ?? Size: 15 x 7mm. ?? Location: 0400, 5cm from the nipple. ?? Recommendation: This is felt to likely represent a fibroadenoma; however, as it is newly palpable, ultrasound guided biopsy was recommended and has been scheduled for 09/17/11 at 10:50am. ? NARRATIVE: ?? CLINICAL INDICATION: Follow-up outside interpretation. The patient had a palpable lump in the Left breast. Per the patient, the lump was palpated by the clinician and it was the clinician's first time examining the patient. ?? CORRELATIVE STUDIES: Mammogram 08/28/11 and ultrasound 08/28/11. ?? FINDINGS: In the Left breast in the 0400 position, 5cm from the nipple there is a well circumscribed, gently lobulated 15 x 7mm predominantly hypoechoic mass with a small amount of internal vascularity. ? Film and interpretation reviewed by the attending Procedure Note Danica Gonzalez MD - 09/12/2011 LEFT BREAST ULTRASOUND ON 09/12/11: DIAGNOSTIC IMAGING SUMMARY: LEFT BREAST LESION 1: SUSPICIOUS (BIRADS Category 4A-low concern for malignancy). Finding: Mass. Size: 15 x 7mm. Location: 0400, 5cm from the nipple. Recommendation: This is felt to likely represent a fibroadenoma; however,as it is newly palpable, ultrasound guided biopsy was recommended and has been scheduled for 09/17/11 at 10:50am. NARRATIVE: CLINICAL INDICATION: Follow-up outside interpretation. The patient had a palpable lump in the Left breast. Per the patient, the lump was palpatedby the clinician and it was the clinician's first time examining the patient. CORRELATIVE STUDIES: Mammogram 08/28/11 and ultrasound 08/28/11. FINDINGS: In the Left breast in the 0400 position, 5cm from the nipplethere is a well circumscribed, gently lobulated 15 x 7mm predominantly hypoechoicmass with a small amount of internal vascularity. Film and interpretation reviewed by the attending Lucero Bailey MD IMG MAMMO ORDERABLES documented in this encounter Visit Diagnoses Diagnosis Abnormal mammogram, unspecified- Primary Abnormal mammogram, unspecified documented in this encounter Care Teams Histological Illustrator Relationship Specialty Start Date End Date Yaritza Stewart APRN [address] [place], [place] [address] [address] PCP - General 08/22/10 documented as of this encounter
--- OUTSIDE RECORDS SUMMARY | 2024-08-14 00:37 | XMS_ITS | Encounter Summary ---
Author Organization [facility] Address [address] [place] [address] Care Team Providers Care Computer Systems Architect Name Role Phone TerryYaritza Nick YACHT RIGGER Primary Care Provider [phone] Encounter Details Date Type Department Care Team (Late st Contact Info) Description 03/26/2003 Results Only [facility] - Maple conversion [address] [place] [address] Gio Martin MD 29 [facility] [address] [address] Social History Tobacco Use Types [...] Priority Date/Time Associated Diagnosis Comments CYTOPATHOLOGY Routine 03/26/2003 0:00 EDT documented in this encounter Results * CYTOPATHOLOGY (03/26/2003 0:00 EDT) Pathology Report: CYTOPATHOLOGY REPORT Reports generated via electronic interface contain original data; however they are lacking the format of the original report. Caution should be taken when reading/interpreti ng unformatted reports. Name: ? KAITY CASON ? Accession #: ? [id number] : ? 1980 (Age: 22) ??F ?Collect Date: ? 03/26/2003 Location: ? [facility] ? Receive Date: ? 03/30/2003 Provider: ?GIO MARTIN MD Copy to: ? Specimen/Source: ?ThinPrep Pap Test, Cervix/Endocervix Last Menstrual Period: ? 03/20/03 Previous Gynecologic Pathology: ? 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 Colposcopy ? SPECIMEN ADEQUACY ? Satisfactory for Evaluation - transformation zone component present GENERAL CATEGORIZATION ? Epithelial Cell Abnormality INTERPRETATION ? Squamous Cell Abnormality - Low grade squamous intraepithelial lesion (LSIL). EDUCATIONAL NOTES/RECOMMENDATI ONS ? [facility] recommends following the 2001 Consensus Guidelines for the Management of Women with Cervical Cytological Abnormalities (JOHNNIE,2002;287:212 0-9). Management algorithms have been distributed by [facility] and are available online at www.ASCCP.org. ? Document reviewed and electronically signed by: ? MYLA CHEN MD ? Report Date: ??04/06/2003 14:09 End of Report [facility] 03/26/2003 03/30/2003 us Gio Martin MD PATHOLOGY ORDERABLES Final Resu lt [facility] [address] [place] [address] documented in this encounter Visit Diagnoses Not on filedocumented in this encounter Care Teams Computer Systems Architect Relationship Specialty Start Date End Date Yaritza Stewart NP [facility] [address] [place] [address] PCP - General 02/11/09 05/28/12 documented as of this encounter
--- OUTSIDE RECORDS SUMMARY | 2024-08-14 00:37 | XMS_ITS | Encounter Summary ---
Author Organization [facility] Address [facility] [place] [address] Care Team Providers Care Adolescent Counselor Name Role Phone Yaritza Stewart APRN Primary Care Provider [phone] Encounter Details Date Type Department Care Team (Latest Contact Info) Description 09/17/2011 10:48 AM EST - 09/17/2011 11:59 PM EST Hospital Encounter Mammography at [facility] [place] [id number] CLINIC, Jonathan Romo MD [address] [place] [address] Lump or mass in breast; Abnormal findings on diagnostic imaging of breast Discharge Disposition: Home Social History Tobacco Use Types Packs/Day Years Used Date Smoking Tobacco: Never Assessed Sex and Gender Information Value Date Recorded Sex Assigned at Not on file Gender Identity Not on file Sexual Orientation Not on file documented as of this encounter H&P Notes * Danica Greene MD - 09/17/2011 10:55 AM EST Procedure date: done today Procedure type: right Breast ultrasound guided biopsy Special Instructions: none Allergies: Review of patient's allergies indicates not on file. Medications: No current outpatient prescriptions on file. Anticoagulation status: none Imaging reviewed and procedural plan approved by Dr. DANICA GREENE MD documented in this encounter Miscellaneous Notes * Miscellaneous - Provider, Scanning - 09/28/2011 9:10 AM EST * Miscellaneous - Provider, Scanning - 09/28/2011 8:56 AM EST documented in this encounter Plan of Treatment Not on file documented as of this encounter Procedures Procedure Name Priority Date/Time Associated Diagnosis Comments MAMMO US BIOPSY BILATERAL Routine 09/17/2011 11:55 AM EST Lump or mass in breast Abnormal findings on diagnostic imaging of breast documented in this encounter Results * Mammo- US biopsy (09/17/2011 11:55 AM EST) Anatomical Region Laterality Modality Breast N/A Mammography 09/17/2011 11:5 5 AM EST Impressions 09/19/2011 1:41 PM EST Impression: Concordant Recommendation: Commence routine screening mammography at an age and time interval appropriate for her risk factors and future recommendations. Discussed with the patient on 09/19/11 No post-clip films obtained Both Dr. Cruz and I performed the procedure. I attest to having personally viewed the images/test and approve the above interpretation. Narrative 09/19/2011 1:41 PM EST ULTRASOUND GUIDED BIOPSY OF THE LEFT BREAST ON 09/17/11: Informed consent was obtained, sterile technique and 1% lidocaine used for local anesthesia and ultrasound guidance used throughout the procedure. Clinical indication: 19mm mass, 0400, 5cm from nipple in the Left breast A 14 gauge Achieve biopsy device was used 4 core biopsy specimens obtained. Satisfactory sampling was obtained. A 17 gauge Ultracore [place] marker clip was placed. Cranio-caudal and lateral digital mammography performed to determine biopsy marker placement, which was shown to be at the biopsy site. There were no procedural complications. Imaging diagnosis: Fibroadenoma Pathologic diagnosis: Fibroadenoma Procedure Note Danica Greene MD - 09/19/2011 ULTRASOUND GUIDED BIOPSY OF THE LEFT BREAST ON 09/17/11: Informed consent was obtained, sterile technique and 1% lidocaine used for local anesthesia and ultrasound guidance used throughout the procedure. Clinical indication: 19mm mass, 0400, 5cm from nipple in the Left breast A 14 gauge Achieve biopsy device was used 4 core biopsy specimens obtained. Satisfactory sampling was obtained. A 17 gauge Ultracore [place] marker clip was placed. Cranio-caudal andlateral digital mammography performed to determine biopsy marker placement, whichwas shown to be at the biopsy site. There were no procedural complications. Imaging diagnosis: Fibroadenoma Pathologic diagnosis: Fibroadenoma IMPRESSION Impression: Concordant Recommendation: Commence routine screening mammography at an age and time interval appropriate for her risk factors and future recommendations.Discussed with the patient on 09/19/11 No post-clip films obtained Both Dr. Cruz and I performed the procedure. I attest to havingpersonally viewed the images/test and approve the above interpretation. Danica Greene MD IMG MAMMO ORDERABLES documented in this encounter Visit Diagnoses Diagnosis Lump or mass in breast Abnormal findings on diagnostic imaging of breast Other (abnormal) findings on radiological examination of breast documented in this encounter Care Teams Adolescent Counselor Relationship Specialty Start Date End Date Yaritza Stewart APRN [address] [place] [address] PCP - General 08/22/10 documented as of this encounter
--- OUTSIDE RECORDS SUMMARY | 2024-08-14 00:37 | XMS_ITS | Encounter Summary ---
Author Organization [facility] Address [address] [place] [address] Care Team Providers Care Client Service Executive Name Role Phone TerryYaritza CAR BODY DESIGNER Primary Care Provider [phone] Encounter Details Date Type Department Care Team (Late st Contact Info) Description 08/31/2002 Results Only [facility] - Maple conversion [address] [place] [address] Gio Martin MD [address] [place] [address] [address] [address] Social History Tobacco Use Types [...] Comments HPV DETECTION, HIGH RISK TYPES Routine 08/31/2002 14:00 EST CYTOPATHOLOGY Routine 08/31/2002 0:00 EST documented in this encounter Results * HUMAN PAPILLOMA VIRUS DNA TEST (08/31/2002 14:00 EST) Specimen Description Cervix, ThinPrep vial [facility] Result Positive for one or more of HPV types 16,18,31,33,35 ,39,45,51,52,5 6,58,59, or 68. These high/intermedi ate risk HPV types are associated with dysplasia and some cervical cancers. [facility] Report Status Final [id number] [facility] 08/31/2002 14:0 0 EST 09/04/2002 7:25 EST us Gio Martin MD MICROBIOLOGY - GENERAL ORDERABL ES Final Result [facility] [address] [place] [address] * CYTOPATHOLOGY (08/31/2002 0:00 EST) Pathology Report: CYTOPATHOLOGY REPORT Reports generated via electronic interface contain original data; however they are lacking the format of the original report. Caution should be taken when reading/interpreti ng unformatted reports. Name: ? KAITY CASON ? Accession #: ? [id number] : ? 1980 (Age: 21) ??F ?Collect Date: ? 08/31/2002 Location: ? [facility] ? Receive Date: ? 09/02/2002 Provider: ?GIO MARTIN MD Copy to: ? Specimen/Source: ?ThinPrep Pap Test, Cervix/Endocervix Last Menstrual Period: ? Menstrual/Pregnanc y Status: ? Post Previous Gynecologic Pathology: ? HSIL: 2 Treatment History: ? Colposcopy: neg Other: ? Colposcopy Pap and/or biopsy in progress HPVDX - HPV testing requested regardless of diagnosis on current ThinPrep Pap test. ? SPECIMEN ADEQUACY ? Satisfactory for Evaluation - transformation zone component absent GENERAL CATEGORIZATION ? Negative for Intraepithelial Lesion or Malignancy ? Document reviewed and electronically signed by: ? LUISA Coppola(ASCP) ? Report Date: ??09/03/2002 09:42 End of Report [facility] 08/31/2002 09/02/2002 us Gio Martin MD PATHOLOGY ORDERABLES Final Resu lt Performing Organization Address City/State/[facility] Co de Phone Number [facility] [address] [place] [address] documented in this encounter Visit Diagnoses Not on filedocumented in this encounter Care Teams Client Service Executive Relationship Specialty Start Date End Date Yaritza Stewart NP [address] [place] [address] PCP - General 02/11/09 05/28/12 documented as of this encounter
--- OUTSIDE RECORDS SUMMARY | 2024-08-14 00:37 | XMS_ITS | Encounter Summary ---
Author Organization [facility] Address [facility] [place] [address] Care Team Providers Care Staple Processing Machine Operator Name Role Phone Yaritza Stewart APRN Primary Care Provider [phone] Encounter Details Date Type Department Care Team (Late st Contact Info) Description 09/12/2011 [place] [phone] Danica Gonzalez MD [facility] DR [place] [address] Lump or mass in breast; Abnormal findings on diagnostic imaging of breast Social History Tobacco Use Types Packs/Day Years Used Date Smoking Tobacco: Never Assessed Sex and Gender Information Value Date Recorded Sex Assigned at Not on file Gender Identity Not on file Sexual Orientation Not on file documented as of this encounter Plan of Treatment Not on file documented as of this encounter Results * Mammo- US biopsy [...] sampling was obtained. A 17 gauge Ultracore [place] marker clip was placed. Cranio-caudal and lateral digital mammography performed to determine biopsy marker placement, which was shown to be at the biopsy site. There were no procedural complications. Imaging diagnosis: Fibroadenoma Pathologic diagnosis: Fibroadenoma Procedure Note Danica Gonzalez MD - 09/19/2011 ULTRASOUND GUIDED BIOPSY OF [...] sampling was obtained. A 17 gauge Ultracore [place] marker clip was placed. Cranio-caudal andlateral digital [...] images/test and approve the above interpretation. Danica Gonzalez MD IMG MAMMO ORDERABLES documented in this encounter Visit Diagnoses Diagnosis Lump or mass in breast Abnormal findings on diagnostic imaging of breast Other (abnormal) findings on radiological examination of breast Lump or mass in breast Abnormal findings on diagnostic imaging of breast Other (abnormal) findings on radiological examination of breast documented in this encounter Care Teams Staple Processing Machine Operator Relationship Specialty Start Date End Date Yaritza Stewart APRN [address] [place] [address] PCP - General 08/22/10 documented as of this encounter
--- OUTSIDE RECORDS SUMMARY | 2024-08-14 00:37 | XMS_ITS | Encounter Summary ---
Author Organization [facility] Address [facility] [place] [address] Care Team Providers Care Product Safety Associate Name Role Phone Yaritza Stewart JULIEN Primary Care Provider [phone] Encounter Details Date Type Department Care Team (Latest Contact Info) Description 09/12/2011 12:55 PM EST - 09/12/2011 11:59 PM EST Hospital [place] [phone] CLINIC, Jonathan Romo MD [address] [place] [address] Abnormal mammogram, unspecified Discharge Disposition: Home Social History Tobacco Use [...] Name Priority Date/Time Associated Diagnosis Comments MAMMO BREAST US LIMITED Routine 09/12/2011 1:36 PM EST Abnormal mammogram, unspecified documented in this encounter Results * Mammo breast US [...] unspecified documented in this encounter Care Teams Product Safety Associate Relationship Specialty Start Date End Date Yaritza Stewart APRN [address] [place] [address] PCP - General 08/22/10 documented as of this encounter
--- OUTSIDE RECORDS SUMMARY | 2024-08-14 00:37 | XMS_ITS | Encounter Summary ---
Author Organization [facility] Address [facility] [place] [address] Care Team Providers Care Rigging Engineer Name Role Phone Yaritza Stewart JULIEN Primary Care Provider [phone] Encounter Details Date Type Department Care Team (Latest Contact Info) Description 07/01/2019 8:53 PM EDT - 07/01/2019 11:59 PM EDT Hospital [place] [address] Discharge Disposition: Home Social History Tobacco Use [...] Priority Date/Time Associated Diagnosis Comments SURGICAL PATHOLOGY REPORT Routine 07/01/2019 12:00 PM EDT documented in this encounter Results * Surgical Pathology Report (07/01/2019 12:00 PM EDT) Final Diagnosis [id number] ? Location: [facility] The signing pathologist has (i) examined the relevant preparation(s) for the specimen(s) and (ii) rendered or confirmed the diagnosis(es). . ?Surgical Pathology DIAGNOSIS Skin, left 5th toe, ??excision: - Myrmecia wart, present at the peripheral margins Electronically signed by: ??Alex Simpson MD Verified: ??07/07/2019 ?Dermatopathol ogist Performed at: ??-[facility] Dept. of Pathology, [place], [place] CLINICAL INFORMATION Specimen Submitted: A - SKin, left 5th toe, lesion tag-proximal Clinical History and Diagnosis: Verruca plantaris left foot Referring Identifier: ??[id number] SPECIMEN PROCESSING A - Labeled/Fixativ e: Skin lesion left fifth toe tag proximal, formalin. Quantity/Size: ??Single, 0.9 x 0.8 x 0.5 cm. Tissue Description: Oriented ellipse of colon-phan skin with a suture one apex identified as proximal. The skin surfaces presented with a raised, granular ill- defined papule 0.6 cm in greatest dimension Inkin-3-6 o'clock is marked black. ??6-9-12 o'clock is marked blue. Sections/Proces sing: Serially sectioned and entirely submitted in 3 cassettes as follows: ?A1: ??Sutured, proximal apex ?A2: ??Body ?A3: ??Distal apex ??PPS/vb 07/07/2019 10:20 AM EDT [facility] SPECIMEN FROM SKIN / Unknown 07/01/2019 12:00 PM EDT 07/01/2019 12:00 PM EDT Narrative Resulting Agency Comment Spec In Lab / WKS Sourav Doherty DPM PATHOLOGY/CY TOLOGY ORDERABLES [facility] [place] [address] documented in this encounter Visit Diagnoses Not on filedocumented in this encounter Care Teams Rigging Engineer Relationship Specialty Start Date End Date Yaritza Stewart APRN [address] [place] [address] [place] [address] PCP - General 08/22/10 documented as of this encounter
--- OUTSIDE RECORDS SUMMARY | 2024-08-14 00:37 | XMS_ITS | Encounter Summary ---
[place] [address] Care Team Providers Care Bone Grinder Name Role Phone Yaritza Stewart APRN Primary Care Provider [phone] Encounter Details Date Type Department Care Team (Late st Contact Info) Description 09/06/2011 External Results Hematology/[place] [address] Provider, Scanning Social History Tobacco Use Types Packs/Day Years Used Date Smoking Tobacco: Never Assessed Sex and Gender Information Value Date Recorded Sex Assigned at Not on file Gender Identity Not on file Sexual Orientation Not on file documented as of this encounter Plan of Treatment Not on file documented as of this encounter Procedures Procedure Name Priority Date/Time Associated Diagnosis Comments MAMMO GENERIC BILATERAL SCREENING Routine 08/28/2011 documented in this encounter Results * *Mammo generic bilateral screening (08/28/2011) Anatomical Region Laterality Modality Breast Bilateral Mammography Historical Provider MD PHIPPS MAMMO ORDERAB LES documented in this encounter Visit Diagnoses Not on filedocumented in this encounter Care Teams Bone Grinder Relationship Specialty Start Date End Date Yaritza Stewart APRN [address] [place] [address] PCP - General 08/22/10 documented as of this encounter
--- OUTSIDE RECORDS SUMMARY | 2024-08-14 00:37 | XMS_ITS | Encounter Summary ---
Author Organization [facility] Address [address] [place] [address] Care Team Providers Care Assessment Manager Name Role Phone Terry Yaritza Romero ELIGIBILITY ANALYST Primary Care Provider [phone] Encounter Details Date Type Department Care Team (Late st Contact Info) Description 11/11/2001 Results Only [facility] [address] [place] [address] Selina Marcos [place], [place] [id number] Social History Tobacco Use Types Packs/Day Years [...] Priority Date/Time Associated Diagnosis Comments CYTOPATHOLOGY Routine 11/11/2001 0:00 EST documented in this encounter Results * CYTOPATHOLOGY (11/11/2001 0:00 EST) Pathology Report: CYTOPATHOLOGY REPORT Reports generated via electronic interface contain original data; however they are lacking the format of the original report. Caution should be taken when reading/interpreti ng unformatted reports. Name: ? KAITY DE SOUZA ? Accession #: ? [id number] : ? 1980 (Age: 21) ??F ?Collect Date: ? 11/11/2001 Location: ? [facility] ? Receive Date: ? 11/13/2001 Provider: ?SELINA MARCOS CNM Copy to: ? Specimen/Source: ?ThinPrep Pap Test, Cervix/Endocervix Last Menstrual Period: ? 10/02/01 Menstrual/Pregnanc y Status: ? SPECIMEN ADEQUACY ? Satisfactory for Evaluation - transformation zone component present GENERAL CATEGORIZATION ? Epithelial Cell Abnormality INTERPRETATION ? Squamous Cell Abnormality - High grade squamous intraepithelial lesion (HSIL). ? Document reviewed and electronically signed by: ? CARLA MCCRAY MD ? Report Date: ??11/19/2001 15:22 End of Report [facility] 11/11/2001 11/13/2001 us Selina Marcos KEYUR PATHOLOGY ORDERABLES Final Res ult Performing Organization Address City/State/[facility] Co de Phone Number [facility] [address] [place] [address] documented in this encounter Visit Diagnoses Not on filedocumented in this encounter Care Teams Assessment Manager Relationship Specialty Start Date End Date Yaritza Stewart NP [address] [place] [phone] PCP - General 02/11/09 05/28/12 documented as of this encounter
--- OUTSIDE RECORDS SUMMARY | 2024-08-14 00:37 | XMS_ITS | Encounter Summary ---
Author Organization [facility] Address [address] [place] [address] Care Team Providers Care Anodiser Name Role Phone TerryYaritza Nick COAL SAMPLE TESTER Primary Care Provider [phone] Encounter Details Date Type Department Care Team (Late st Contact Info) Description 12/15/2003 Results Only [facility] - [facility] [address] [place] [address] William Rowe MD [address] [place] [phone] Social History Tobacco Use Types Packs/Day Years [...] Date/Time Associated Diagnosis Comments SURGICAL PATHOLOGY Routine 12/15/2003 0:00 EST documented in this encounter Results * SURGICAL PATHOLOGY (12/15/2003 0:00 EST) Pathology Report: SURGICAL PATHOLOGY REPORT Reports generated via electronic interface contain original data; however they are lacking the format of the original report. Caution should be taken when reading/interpreti ng unformatted reports. Name: ? KAITY CASON ? Accession #: ? [id number] ? : ? 1980 (Age: 23) ??F ? Collect Date: ? 12/15/2003 ? Location: ? [facility] ? Receive Date: ? 12/16/2003 ? Provider: JUAN ROWE MD Copy to: AMELIE MILLS MD ? Final Pathologic Diagnosis: ? Skin of chest, right anterior, excisional biopsy: - Capillary hemangioma. Document reviewed and electronically signed by: Jeni Childs MD Report ??Date: 12/20/2003 10:09 By the signature above, the attending physician certifies that he/she has personally conducted a gross and/or microscopic examination of the described specimens and rendered or confirmed the above diagnosis. Specimen(s) Received: ? 5 mm lesion R ant. chest Clinical History: ? Lesion ??right chest - ??hemangioma Gross Description: ? Received in formalin labelled Cason and lesion R chest is an unoriented excision of skin which measures 0.6 x 0.2 cm and measures 0.5 cm in thickness. ??There is a 0.3 x 0.3 x 0.3 cm colon bilobed papule. ??The specimen is black inked, serially sectioned, and entirely submitted as follows: BLOCK FLOYD A1 ?Distal tips, reverse en face A2 ?Central sections (Dr. Gama)/[facility] End of Report ETIENNE AHUJA 12/15/2003 12/16/2003 15: 03 EST us William Rowe MD PATHOLOGY ORDERABLES Final Res ult ETI[facility] AHUJA [address] [place] [address] documented in this encounter Visit Diagnoses Not on filedocumented in this encounter Care Teams Anodiser Relationship Specialty Start Date End Date Yaritza Stewart, COAL SAMPLE TESTER [address] [place] [address] PCP - General 02/11/09 05/28/12 documented as of this encounter
--- OUTSIDE RECORDS SUMMARY | 2024-08-14 00:37 | XMS_ITS | Encounter Summary ---
Author Organization [facility] Address [facility] [address] Care Team Providers Care Horses Or Mules Teamster Name Role Phone Yaritza Stewart APRN Primary Care Provider [phone] Encounter Details Date Type Department Care Team (Latest Contact Info) Description 09/07/2011 1:53 PM EST - 09/07/2011 11:59 PM EST Hospital Encounter XRay at [address] [place] [address] CL[address], DR BECKETT Discharge Disposition: Home Social History Tobacco Use Types Packs/Day Years Used Date Smoking Tobacco: Never Assessed Sex and Gender Information Value Date Recorded Sex Assigned at Not on file Gender Identity Not on file Sexual Orientation Not on file documented as of this encounter Plan of Treatment Not on file documented as of this encounter Procedures Procedure Name Priority Date/Time Associated Diagnosis Comments REQUEST FOR 2ND READ MAMMO Routine 09/07/2011 1:46 PM EST documented in this encounter Results * REQUEST FOR 2ND READ MAMMO (09/07/2011 1:46 PM EST) Anatomical Region Laterality Modality Other 09/07/2011 1:46 PM EST Narrative 09/10/2011 11:36 AM EST INTERPRETATION OF OUTSIDE BILATERAL DIRECT DIGITAL MAMMOGRAM 08/28/11 CONSISTING OF CC, MLO AND ML VIEWS OF BOTH BREASTS FROM [facility] (NO COMPARISONS) AND ACCOMPANYING REPORTS WITH LEFT BREAST ULTRASOUND OF THE SAME DATE FOR COMPARISON: DIAGNOSTIC IMAGING SUMMARY: LEFT BREAST LESION 1: SUSPICIOUS (BIRADS Category 4). Finding: Palpable solid mass. Recommendation: If this mass is newly palpable, then tissue sampling is recommended. If the patient wishes to pursue tissue sampling at this institution, then a repeat ultrasound would be needed prior to scheduling the biopsy. NARRATIVE: CLINICAL INDICATION: I have been asked to consult on this patient by Dr. Jonathan Guerrero and Johana Harp APRN because they believe a review of this study may change or alter the care of this patient. The patient presented with a palpable lump in the Left breast. There is a skin marker presumably marking a palpable abnormality in the lower, outer quadrant of the Left breast. FINDINGS: The mammogram shows an extremely dense fibroglandular pattern. No finding worrisome for malignancy is seen in either breast. Specifically, in the region of the indicated palpable mass there is no mammographic abnormality. Per outside ultrasound report and the submitted images there does appear to be a solid mass which presumably corresponds to the palpable abnormality. This may very well represent a fibradenoma but if this is newly palpable, ??recommend ultrasound guided core needle biopsy. If patient wishes to pursue biopsy at this institution and as ultrasound is button tufting machine operator dependent, a repeat ultrasound would be needed at this institution prior to scheduling the biopsy. Procedure Note Lucero Bailey MD - 09/10/2011 INTERPRETATION OF OUTSIDE BILATERAL DIRECT DIGITAL MAMMOGRAM 08/28/11 CONSISTING OF CC, MLO AND ML VIEWS OF BOTH BREASTS FROM [facility] (NOCOMPARISONS) AND ACCOMPANYING REPORTS WITH LEFT BREAST ULTRASOUND OF THE SAME DATE FOR COMPARISON: DIAGNOSTIC IMAGING SUMMARY: LEFT BREAST LESION 1: SUSPICIOUS (BIRADS Category 4). Finding: Palpable solid mass. Recommendation: If this mass is newly palpable, then tissue sampling is recommended. If the patient wishes to pursue tissue sampling at this institution, then a repeat ultrasound would be needed prior to schedulingthe biopsy. NARRATIVE: CLINICAL INDICATION: I have been asked to consult on this patient by Dr.Thomas Guerrero and Johana Harp APRN because they believe a review of this study may change or alter the care of this patient. The patient presentedwith a palpable lump in the Left breast. There is a skin marker presumably marking a palpable abnormality in thelower, outer quadrant of the Left breast. FINDINGS: The mammogram shows an extremely dense fibroglandular pattern. No finding worrisome for malignancy is seen in either breast.Specifically, in the region of the indicated palpable mass there is no mammographicabnormality. Per outside ultrasound report and the submitted images there does appearto be a solid mass which presumably corresponds to the palpable abnormality.This may very well represent a fibradenoma but if this is newly palpable,recommend ultrasound guided core needle biopsy. If patient wishes to pursue biopsyat this institution and as ultrasound is button tufting machine operator dependent, a repeatultrasound would be needed at this institution prior to scheduling the biopsy. Johana Harp APRN IMG OUTSIDE INTERPR ETATION ORDERABLES documented in this encounter Visit Diagnoses Not on filedocumented in this encounter Care Teams Horses Or Mules Teamster Relationship Specialty Start Date End Date Yaritza Stewart APRN [address] [place] [address] PCP - General 08/22/10 documented as of this encounter
--- OUTSIDE RECORDS SUMMARY | 2024-08-14 00:37 | XMS_ITS | Clinical Summary ---
Author Organization [facility] [address] Care Team Providers Care Web Merchant Name Role Phone Yaritza Stewart JULIEN Primary Care Provider [phone] Social History Tobacco Use Types Packs/Day Years Used Date Smoking Tobacco: Never Assessed Sex and Gender Information Value Date Recorded Sex Assigned at Not on file Gender Identity Not on file Sexual Orientation Not on file Plan of Treatment Health Maintenance Due Date Last Done Comments CT Colonography 1978 Colonoscopy 1978 Colorectal Cancer Screening 1980 FIT DNA 1980 FIT 1980 Sigmoidoscopy (10 year) with FIT yearly 1978 Sigmoidoscopy 1980 HIV screen 1996 Hepatitis C Screening 1996 Hepatitis B vaccine (0-59 yrs) (1) 1997 Tetanus/Diphtheria/Pertussis Vaccines (1 - Tdap) 09/13 HPV test 2008 PAP Smear 2008 Breast Cancer Share Decision Needed 2018 Breast Cancer screening 2018 08/28/2011 Covid-19 Vaccine ( - season) 2024 Influenza (Flu) vaccine (1 o f 1 - Influenza standard series) 05/31/2024 Procedures Procedure Name Priority Date/Time Associated Diagnosis Comments MAMMO GENERIC BILATERAL SCREENING Routine 08/28/2011 from Last 3 Months or Most Recently Relevant to Health Maintenance Results * *Mammo generic bilateral screening (08/28/2011) Anatomical Region Laterality Modality Breast Bilateral Mammography Historical Provider MD PHIPPS MAMMO ORDERAB LES from Last 3 Months or Most Recently Relevant to Health Maintenance Care Teams Web Merchant Relationship Specialty Start Date End Date Yaritza Stewart, JULIEN [address] [place], [place] [phone] PCP - General 08/22/10
--- NOTE | 2024-08-14 07:15 | DI.MAMMO_ITS ---
Exam(s) US BREAST LT COMPLETE US BREAST RT COMPLETE MG MAMMO DIAGNOSTIC BI EXAM: MG MAMMO DIAGNOSTIC BI CLINICAL HISTORY: Interval F/U,f/u abnl mammo, r92.8,h/o fibroadenoma lt,rt asymmetric breast. TECHNIQUE: Spot compression digital Mammography views of the bothbreasts with Tomosynthesis followe d by bilateral breast ultrasound. Or or issues nipple distance to this is in her and this is a previ ous COMPARISON: MG MG MAMMO SCREENING from 06/15/2022 US US BREAST LT COMPLETE from 06/21/2022 MG MG MAMMO SCREENING from 07/04/2023 US US BREAST LT COMPLETE from 07/04/2023 MG MG MAMMO SCREEN CALL BACK UNI from 07/11/2023 US US BREAST RT LIMITED from 07/11/2023 US US BREAST RT COMPLETE from 01/10/2024 MG MG MAMMO DIAGNOSTIC UNI from 01/10/2024 US US BREAST RT COMPLETE from 08/14/2024 US US BREAST LT COMPLETE from 08/14/2024 FINDINGS: RIGHT BREAST: Mammography/Tomosynthesis: Masses/Architectural Distortion: None seen. Microcalcifictions: No suspicious pleomorphic-type are seen. Skin Thickening/Nipple Retraction: None. Right breast US: Echotexture: Dense breast tissue. Shadowing: Area of shadowing noted at the border of the upper outer quadrant of the right breast and axilla with question of a mass versus artifact. Cyst: None. Solid lesions: A hypoechoic, circumscribed ovoid lesion is again noted in the 8 o'clock position whi ch appears unchanged in appearance. Ductal dilation: None. LEFT BREAST: Mammography/Tomosynthesis: Masses/Architectural Distortion: Circumscribed nodule with biopsy marker clip again noted. Microcalcifictions: No suspicious pleomorphic-type are seen. Skin Thickening/Nipple Retraction: None. Left breast ultrasound: Echotexture: Normal appearance of the glandular tissue. Shadowing: No suspicious foci. Cyst: None. Solid lesions: Stable size and appearance of ovoid hypoechoic lesion in the 4 o'clock position. No n ew abnormalities. Ductal dilation: None. IMPRESSION: 1. Right breast: Stable appearance of ovoid lesion in the 8 o'clock position which appears benign. N o area of shadowing in the upper outer quadrant with the junction of axilla which could represent mas s versus artifact. MRI recommended for further evaluation. 2. Left breast: No evidence of malignancy is noted. The findings were discussed with the patient on the date of the examination. BI-RADS Category 0 - Incomplete: Need additional imaging evaluation Breast Density - Category C - Heterogeneously dense A mammogram that demonstrates density of C or D indicates the patient's breast tissue is dense. Dense breast tissue is very common and is not abnormal, but dense breast tissue can make it harder to find cancer on a mammogram. Also, dense breast tissue may increase their breast cancer risk. This informa tion about the result of the mammogram report was provided to the patient to raise their awareness. U se this report when you speak with the patient about their risks for breast cancer, which includes th eir family history. At that time, you may recommend for more screening tests (Ultrasound or MRI) as t hey might be useful based on their risk. A negative radiographic report should not delay biopsy if a dominant or clinically suspicious mass is present. Up to ten percent of cancers are not identified on mammography. A negative report may reinforce clinical impression. Adenosis and dense breasts may obscure an underlying neoplasm. False positive reports average 6 to 10%. Patient will receive a letter notifying them of these results.
== END 2024-08-14 00:55 ==
LOC: DI 00:35
PROVIDERS: PCP Nurse Practitioner Adult Health; Visit Provider Nurse Practitioner Adult Health
DX: R92.8 Other abnormal and inconclusive findings on diagnostic imaging of breast (principal); Z12.31 Encounter for screening mammogram for malignant neoplasm of breast
CPT/HCPCS: 76642; 77062; 77066; G0279

== ENCOUNTER 2024-12-03 11:06 | Outpatient (REF) | payer BC, SELFPAY ==
--- NOTE | 2024-12-03 09:45 | PAPFT_PTH ---
PATIENT: Kaity De Souza LOC: [facility] U#:[id number] AGE/SX: 44/F ROOM: RE12/03/[address]: Johana Harp APRN : 1980 BED: DIS: 12/03/2024 SPEC #: [id number] RECD: 12/03/24 17:53 STATUS: CARMITA RERonit #: [id number] KATEY: 12/03/24 09:[address]: Johana Harp DEPT: REPLACED BY [facility] Cytology RECD BY: Hilda Nunn Tissues: 1 - CX/ENDOCX FOR PAP SMEARS Procedures: PAP THIN PREP/[facility] Screening HPV DNA PROBE Comments: [id number] (HPV 16 & 18/45)
== END 2024-12-03 11:07 | disposition home or self-care (01) ==
LOC: LBN 11:06
PROVIDERS: PCP Nurse Practitioner Adult Health; Visit Provider Nurse Practitioner Adult Health
DX: Z12.4 Encounter for screening for malignant neoplasm of cervix (principal); Z11.51 Encounter for screening for human papillomavirus (HPV); Z13.1 Encounter for screening for diabetes mellitus; Z12.11 Encounter for screening for malignant neoplasm of colon; Z13.220 Encounter for screening for lipoid disorders
CPT/HCPCS: 88142; 87624

== ENCOUNTER 2024-12-15 01:30 | Outpatient (CLI) | payer BC, SELFPAY ==
[2024-12-15 09:02] LABS: Anion Gap 9.2 mmol/L (3-11); BUN 10 mg/dL (7-18); CO2 28.8 mmol/L (21.0-32.0); CREATININE 0.7 mg/dL (0.55-1.02); Calculated LDL 159 mg/dL (<100); Chloride 105 mmol/L (98-107); Cholesterol 244 mg/dL (<200); Estimated GFR 107.95 (mL/min/1.73m2); Glucose 106 mg/dL (74-106); HDL Cholesterol 73 mg/dL (>or=50); Potassium 3.6 mmol/L (3.5-5.1); Sodium 143 mmol/L (136-145); Triglyceride 62 mg/dL (<150)
== END 2024-12-15 01:31 | disposition home or self-care (01) ==
LOC: LBO 01:30
PROVIDERS: PCP Nurse Practitioner Adult Health; Referring Provider Nurse Practitioner Adult Health; Visit Provider Nurse Practitioner Adult Health
DX: Z13.1 Encounter for screening for diabetes mellitus (principal); Z13.220 Encounter for screening for lipoid disorders; Z00.00 Encounter for general adult medical examination without abnormal findings
CPT/HCPCS: 36415; 80048; 80061